=== PATIENT | female | born 1960 | race Caucasian/White ===

== ENCOUNTER 2023-03-04 10:24 | Inpatient (IN) ==
[2023-03-04 11:46] LABS: Basophils # (auto) 0.04 K/uL (0-0.2); Basophils % (auto) 0.5 %; Eosinophils # (auto) 0.49 K/uL (0-0.50); Eosinophils % (auto) 5.6 %; Hemoglobin 10.8 g/dl (12.0-16.0); Immature Granulocytes # (auto) 0.04 K/uL (0.01-0.20); Immature Granulocytes % (auto) 0.5 %; Lymphocytes # (auto) 1.88 K/uL (1.2-3.4); Lymphocytes % (auto) 21.5 %; Mean Corpuscular Hemoglobin 26.8 pg (25.0-34.0); Mean Corpuscular Hgb Conc 29.2 g/dL (32.0-36.0); Mean Corpuscular Volume 91.8 fL (80.0-100.0); Mean Platelet Volume 9.5 fL (9.4-12.4); Monocytes # (auto) 0.52 K/uL (0.11-0.59); Monocytes % (auto) 5.9 %; Neutrophils # (auto) 5.79 K/uL (1.40-6.50); Platelet Count 248 K/uL (130-400); RDW Coefficient of Variation 13.3 % (11.5-14.5); RDW Standard Deviation 45.2 fL (36.4-46.3); Red Blood Count 4.03 M/uL (4.20-5.40); White Blood Count 8.76 K/ul (4.8-10.8)
[2023-03-04 11:54] LABS: INR 1.1 (0.9-1.1); Partial Thromboplastin Ratio 0.9; Prothrombin Time 11.5 Seconds (9.0-12.0)
--- NOTE | 2023-03-04 12:07 | XRay Report ---
XR chest 1V not portable HISTORY: 62 years-old Female Chest pain, nonspecific COMPARISON: 04/19/2009 TECHNIQUE: AP view of the chest FINDINGS: Cardiac silhouette is enlarged. Small hiatal hernia. No pneumothorax, pleural effusion, airspace cons olidation or pulmonary edema. Bones appear grossly intact. Cholecystectomy. Sigmoidal thoracolumbar s coliosis. IMPRESSION: 1. Cardiomegaly without acute process. 2. Hiatal hernia. ACT 112: Negative or not required by law. The above report was generated using voice recognition software. It may contain grammatical, syntax o r spelling errors. Electronically signed by: Stan Clark M.D. 03/04/2023 12:05 PM
--- NOTE | 2023-03-04 12:33 | Emergency Department Note ---
Impression & Plan Shortness of breath, AMS (altered mental status), [facility] ED Provider Note NAME: DANIEL OWEN AGE: 62 SEX: F : 1960 ARRIVES VIA: Walk-In INFORMANT: Patient ED PROVIDER(S): Asad Goldsmith DO CHIEF COMPLAINT: elevated CO2 HPI: Patient is a 62-year-old female who presents to the ER referred by PCP for elevated CO2 levels. Patient does have a history of dementia. present at bedside and gave the majority of the history. Patient denies any headache or change in vision. No chest pain or shortness of breath. No nausea, vomiting, or diarrhea. She does admit that she normally does use her BiPAP. No other exacerbating or remitting factors. PAST MEDICAL HISTORY:See Below PAST SURGICAL HISTORY:See Below FAMILY HISTORY:See Below SOCIAL HISTORY:See Below HOME MEDICATIONS:See Below ALLERGIES:See Below VITALS:See Below PHYSICAL EXAMINATION: GENERAL: Sitting up in bed, alert, well appearing, well nourished, no distress, non-toxic EYE EXAM: normal conjunctiva. OROPHARYNX: no exudate, no erythema, lips, buccal mucosa, and tongue normal and mucous membranes are moist NECK: supple, no nuchal rigidity, no adenopathy, non-tender LUNGS: Clear to auscultation. Normal chest wall mechanics HEART: no murmurs, S1 normal and S2 normal ABDOMEN: abdomen soft, non-tender, normo-active bowel sounds, no masses, no rebound or guarding. BACK: Back is symmetrical on inspection and there is no deformity, no midline tenderness, no CVA tenderness. SKIN: Erythema over the pannus in the groin. Does have pitting edema UPPER EXTREMITIES: upper extremities are grossly normal. LOWER EXTREMITIES: Pitting edema in the bilateral lower extremities NEURO EXAM: Normal sensorium, cranial nerves II-XII grossly intact, normal speech, no gross weakness of arms, no gross weakness of legs. MEDICAL DECISION MAKING: Patient is a 62-year-old female who presents ER for above-stated complaint. Patient was referred in by PCP for increased confusion of the past several days. IV was established blood work was obtained. Labs show no significant leukocytosis. Mild anemia. INR unremarkable. VBG with CO2 of 99. Patient was fairly well compensated with a pH of 7.34. BMP was unremarkable. LFTs bilirubin was unremarkable. Troponin was negative. Patient does not wear BiPAP/is unable to keep it on. Do favor that his part of the cause. Did discuss with the hospitalist for further evaluation management treatment. Did place the patient on BiPAP to see if this helps clear up her confusion. Of note patient was in no respiratory distress. Patient was covered with Rocephin for the erythema in the groin which does appear to be consistent with a cellulitis. Triage Nursing notes reviewed. Limited review of prior medical records performed Vital Signs: reviewed and remarkable for no significant abnormalities Differential diagnosis: Differential diagnoses includes but is not limited to pneumonia, bronchitis, COPD/Asthma exacerbation, pneumothorax, pulmonary embolism, congestive heart failure, acute coronary syndrome ER treatment provided: See below Diagnostics interpreted by me include EKG and cardiac monitoring as listed below: -Cardiac Monitoring: An order was placed for continuous cardiac monitoring. The monitor shows a rate of 80 with sinus rhythm. -ECG: none -Laboratory studies:Interpreted by me as stated above in MDM and shown below. Imaging studies: Xrays: As interpreted by me: Portable AP upright 1 view of the chest shows no focal infiltrate CTs show: none Consultation(s): As described in MDM Procedures:none Critical Care: I have personally spent 31 minutes of critical care time in the direct management of this patient. This includes bedside care, interpretation of diagnostic studies, and testing, discussion with consultants, patient, and family members, and other required patient management activities. This 31 minutes is in excess of all separately billable procedures. Past Med/Surg History Social History Smoking Status: Never smoker Feels Safe at Home: Yes Allergies Allergies Allergy/AdvReac Type Severity Reaction Status Date / Time Penicillins Allergy Mild Verified 08/19/09 03:46 Home Meds Home Medications Medication Instructions Recorded Confirmed amitriptyline 10 mg tablet 10 mg PO HS 03/04/23 03/04/23 amitriptyline 25 mg tablet 25 mg PO HS 03/04/23 03/04/23 buprenorphine 8 mg-naloxone 2 mg 1 film sublingual BID 03/04/23 03/04/23 sublingual film cyanocobalamin (vitamin B-12) 1,000 mcg IM MONTHLY 03/04/23 03/04/23 1,000 mcg/mL injection solution donepezil 10 mg tablet 10 mg PO DAILY 03/04/23 03/04/23 doxycycline hyclate 100 mg capsule 100 mg PO BID 03/04/23 03/04/23 duloxetine 60 mg capsule,delayed 60 mg PO DAILY 03/04/23 03/04/23 release folic acid 1 mg tablet 1 mg PO DAILY 03/04/23 03/04/23 furosemide 20 mg tablet (Lasix) 20 mg PO BID 03/04/23 03/04/23 levothyroxine 150 mcg tablet 150 mcg PO DAILY 03/04/23 03/04/23 loratadine 10 mg tablet 10 mg PO DAILY PRN Allergy Symptoms 03/04/23 03/04/23 methocarbamol 500 mg tablet 500 mg PO BID 03/04/23 03/04/23 Results & Data (ED) Vital Signs Vital Signs - 24 hr 03/04/23 10:38 03/04/23 12:41 03/04/23 12:41 Temperature 36.8 C Temperature Source Oral Pulse Rate 80 Pulse Rate from SpO2 Sensor Respiratory Rate 24 Respiratory Effort / Characteristics Blood Pressure 132/72 Blood Pressure Mean 92 Blood Pressure Position Sitting Pulse Oximetry 97 97 97 Oxygen Delivery Method Nasal Cannula Nasal Cannula Nasal Cannula Oxygen Flow Rate 3 3 Fraction of Inspired Oxygen Sepsis Recent Fever Within 48 Hours No Sepsis New/Unexplained Change in Mental Status No Sepsis Action Taken by Nursing No Action Required 03/04/23 12:36 03/04/23 12:37 03/04/23 12:40 Temperature Temperature Source Pulse Rate 78 73 Pulse Rate from SpO2 Sensor 78 75 Respiratory Rate 17 13 Respiratory Effort / Characteristics Blood Pressure 140/80 Blood Pressure Mean 108 Blood Pressure Position Pulse Oximetry 99 96 Oxygen Delivery Method Oxygen Flow Rate Fraction of Inspired Oxygen Sepsis Recent Fever Within 48 Hours Sepsis New/Unexplained Change in Mental Status Sepsis Action Taken by Nursing 03/04/23 12:36 03/04/23 13:22 Temperature Temperature Source Pulse Rate 75 75 Pulse Rate from SpO2 Sensor Respiratory Rate 26 H Respiratory Effort / Characteristics Spontaneous Blood Pressure Blood Pressure Mean Blood Pressure Position Pulse Oximetry 98 Oxygen Delivery Method Oxygen Flow Rate Fraction of Inspired Oxygen 30 Sepsis Recent Fever Within 48 Hours Sepsis New/Unexplained Change in Mental Status Sepsis Action Taken by Nursing Laboratory Data 03/04/23 11:25 03/04/23 11:25 Lab Results 03/04/23 03/04/23 03/04/23 Range/Units 11:25 11:25 11:25 WBC 8.76 (4.8-10.8) K/ul RBC 4.03 L (4.20-5.40) M/uL Hgb 10.8 L (12.0-16.0) g/dl Hct 37.0 (37.0-47.0) % MCV 91.8 (80.0-100.0) fL MCH 26.8 (25.0-34.0) pg MCHC 29.2 L (32.0-36.0) g/dL RDW Std Deviation 45.2 (36.4-46.3) fL RDW Coeff of Jaron 13.3 (11.5-14.5) % Plt Count 248 (130-400) K/uL MPV 9.5 (9.4-12.4) fL Immature Gran % (Auto) 0.5 % Neut % (Auto) 66.0 % Lymph % (Auto) 21.5 % Roane % (Auto) 5.9 % Eos % (Auto) 5.6 % Baso % (Auto) 0.5 % Neut # (Auto) 5.79 (1.40-6.50) K/uL Lymph # (Auto) 1.88 (1.2-3.4) K/uL Roane # (Auto) 0.52 (0.11-0.59) K/uL Eos # (Auto) 0.49 (0-0.50) K/uL Baso # (Auto) 0.04 (0-0.2) K/uL Immature Gran # (Auto) 0.04 (0.01-0.20) K/uL PT 11.5 (9.0-12.0) Seconds INR 1.1 (0.9-1.1) APTT 26.0 (21.0-31.0) Seconds PTT Ratio 0.9 ABG pH (7.35-7.45) ABG pCO2 (35-46) mmHg ABG pO2 (80-95) mmHg ABG HCO3 (19-24) mmol/L ABG O2 Saturation (90-95) % ABG Base Excess (-9-1.8) mEq/L Harvinder Test (Pos) VBG pH (7.36-7.41) VBG pCO2 (38-50) mmHg VBG pO2 mmHg VBG HCO3 mmol/L VBG O2 Saturation % VBG Base Excess mEq/L Oxygen Given Sodium 141 (136-145) mmol/L Potassium 3.8 (3.5-5.1) mmol/L Chloride 91 L (98-107) mmol/L Carbon Dioxide > 45 H* (21-32) mmol/L Anion Gap TNP BUN 19 (6-23) mg/dl Creatinine 0.58 L (0.6-1.2) mg/dl Est Cr Clr Drug Dosing Not Reportable Est GFR ( Amer) 114.5 ml/min Est GFR (Non-Af Amer) 98.8 ml/min BUN/Creatinine Ratio 32.8 H (10-20) Glucose 125 H (70-99(Fasting)) mg/dl Calcium 9.1 (8.6-10.3) mg/dl Magnesium 2.1 (1.7-2.4) mg/dl Total Bilirubin 0.3 (0.2-1.0) mg/dl AST 20 (13-39) U/L ALT 13 (7-52) U/L Alkaline Phosphatase 100 (34-104) U/L Troponin I High Sens 7.8 (0-14) pg/ml Total Protein 7.5 (6.0-8.3) gm/dl Albumin 3.5 (3.4-5.0) gm/dl Globulin 4.0 (2.5-4.0) gm/dl Albumin/Globulin Ratio 0.9 (0.9-2) 03/04/23 03/04/23 Range/Units 12:31 13:54 WBC (4.8-10.8) K/ul RBC (4.20-5.40) M/uL Hgb (12.0-16.0) g/dl Hct (37.0-47.0) % MCV (80.0-100.0) fL MCH (25.0-34.0) pg MCHC (32.0-36.0) g/dL RDW Std Deviation (36.4-46.3) fL RDW Coeff of Jaron (11.5-14.5) % Plt Count (130-400) K/uL MPV (9.4-12.4) fL Immature Gran % (Auto) % Neut % (Auto) % Lymph % (Auto) % Roane % (Auto) % Eos % (Auto) % Baso % (Auto) % Neut # (Auto) (1.40-6.50) K/uL Lymph # (Auto) (1.2-3.4) K/uL Roane # (Auto) (0.11-0.59) K/uL Eos # (Auto) (0-0.50) K/uL Baso # (Auto) (0-0.2) K/uL Immature Gran # (Auto) (0.01-0.20) K/uL PT (9.0-12.0) Seconds INR (0.9-1.1) APTT (21.0-31.0) Seconds PTT Ratio ABG pH 7.41 (7.35-7.45) ABG pCO2 85 H (35-46) mmHg ABG pO2 88 (80-95) mmHg ABG HCO3 54 H (19-24) mmol/L ABG O2 Saturation 98.2 H (90-95) % ABG Base Excess 25.1 H (-9-1.8) mEq/L Harvinder Test Pos (Pos) VBG pH 7.34 L (7.36-7.41) VBG pCO2 99 H (38-50) mmHg VBG pO2 36 mmHg VBG HCO3 53 mmol/L VBG O2 Saturation < 60.0 % VBG Base Excess 23.1 mEq/L Oxygen Given 30% Sodium (136-145) mmol/L Potassium (3.5-5.1) mmol/L Chloride (98-107) mmol/L Carbon Dioxide (21-32) mmol/L Anion Gap BUN (6-23) mg/dl Creatinine (0.6-1.2) mg/dl Est Cr Clr Drug Dosing Est GFR ( Amer) ml/min Est GFR (Non-Af Amer) ml/min BUN/Creatinine Ratio (10-20) Glucose (70-99(Fasting)) mg/dl Calcium (8.6-10.3) mg/dl Magnesium (1.7-2.4) mg/dl Total Bilirubin (0.2-1.0) mg/dl AST (13-39) U/L ALT (7-52) U/L Alkaline Phosphatase (34-104) U/L Troponin I High Sens (0-14) pg/ml Total Protein (6.0-8.3) gm/dl Albumin (3.4-5.0) gm/dl Globulin (2.5-4.0) gm/dl Albumin/Globulin Ratio (0.9-2) Administered Medications Discontinued Medications Ceftriaxone Sodium (Rocephin) 2,000 mg in 70 mls @ 140 mls/hr IV NOW STA Stop: 03/04/23 13:22 Last Admin: 03/04/23 13:47 Dose: 140 mls/hr Documented By: YONY Imaging Data Radiologist's Impression: Chest X-Ray 03/04/23 10:40 XR chest 1V not portable HISTORY: 62 years-old Female Chest pain, nonspecific COMPARISON: 04/19/2009 TECHNIQUE: AP view of the chest FINDINGS: Cardiac silhouette is enlarged. Small hiatal hernia. No pneumothorax, pleural effusion, airspace consolidation or pulmonary edema. Bones appear grossly intact. Cholecystectomy. Sigmoidal thoracolumbar scoliosis. IMPRESSION: 1. Cardiomegaly without acute process. 2. Hiatal hernia. ACT 112: Negative or not required by law. The above report was generated using voice recognition software. It may contain grammatical, syntax or spelling errors. Electronically signed by: Stan Clark M.D. 03/04/2023 12:05 PM Discharge Plan Visit Data Chief Complaint: Abnormal Labs/Diagnostic Testing Stated Complaint: REF BY DOC, ABNORMAL LABS ED Provider: Asad Goldsmith Discharge Problem: Shortness of breath, AMS (altered mental status), [facility] Forms Stand Alone Forms: [facility] Prescriptions Prescriptions: No Action amitriptyline 25 mg tablet 25 mg PO HS Rx Instructions: take along with 10mg amitriptyline 10 mg tablet 10 mg PO HS Rx Instructions: to take additionally with 25mg HS cyanocobalamin (vitamin B-12) 1,000 mcg/mL solution 1,000 mcg IM MONTHLY buprenorphine-naloxone 8-2 mg film 1 film sublingual BID methocarbamol 500 mg tablet 500 mg PO BID Rx Instructions: patient taking differently: 1,000mg daily doxycycline hyclate 100 mg Capsule 100 mg PO BID Rx Instructions: scheduled through 03/06 donepezil 10 mg Tablet 10 mg PO DAILY levothyroxine 150 mcg tablet 150 mcg PO DAILY folic acid 1 mg Tablet 1 mg PO DAILY furosemide [Lasix] 20 mg Tablet 20 mg PO BID loratadine 10 mg Tablet 10 mg PO DAILY PRN (Reason: Allergy Symptoms) duloxetine 60 mg capsule,delayed release(DR/EC) 60 mg PO DAILY Referrals Referrals: PCP,NO [Physician] -
[2023-03-04 12:34] LABS: Alanine Aminotransferase 13 U/L (7-52); Albumin Globulin Ratio 0.9 (0.9-2); Albumin Level 3.5 gm/dl (3.4-5.0); Alkaline Phosphatase 100 U/L (34-104); Aspartate Aminotransferase 20 U/L (13-39); BUN Creatinine Ratio 32.8 (10-20); Bilirubin,Total 0.3 mg/dl (0.2-1.0); Blood Urea Nitrogen 19 mg/dl (6-23); Calcium 9.1 mg/dl (8.6-10.3); Carbon Dioxide > 45 mmol/L (21-32); Chloride 91 mmol/L (98-107); Est GFR (African American) 114.5 ml/min; Est GFR (Non-African American) 98.8 ml/min; Glucose 125 mg/dl (70-99(Fasting)); Potassium 3.8 mmol/L (3.5-5.1); Sodium 141 mmol/L (136-145); Total Protein 7.5 gm/dl (6.0-8.3); Troponin I High Sensitivity 7.8 pg/ml (0-14)
[2023-03-04 12:45] LABS: Base Excess VBG 23.1 mEq/L; HCO3 VBG 53 mmol/L; Oxygen Saturation VBG < 60.0 %; PCO2 VBG 99 mmHg (38-50); PO2 VBG 36 mmHg; pH VBG 7.34 (7.36-7.41)
[2023-03-04] MEDS ORDERED: cefTRIAXone SODIUM 2,000 MG/70 ML BAG IV STA (12:53)
[2023-03-04 13:04] LABS: Magnesium 2.1 mg/dl (1.7-2.4)
--- NOTE | 2023-03-04 13:06 | History & Physical Report ---
Date of Service March 04, 2023 Assessment & Plan (1) Respiratory failure with hypoxia and hypercapnia: (2) Hypoventilation associated with obesity syndrome: (3) BEV on CPAP: (4) Morbid obesity: (5) Abdominal wall cellulitis: (6) Psoriatic arthritis: (7) Hypothyroidism: (8) Postgastric surgery syndrome: (9) Moderate dementia with behavioral disturbance: Plan This is a 62yo F with a PMH of hypersomnia with sleep apnea newly on CPAP, chronic hypoxic respiratory failure on 3L NC O2, moderate dementia with mood disturbance, morbid obesity with hypoventilation, history of medication noncompliance, hypothyroidism, dyslipidemia, post gastric surgery syndrome, psoriatic arthritis, h/o juvenile arthritis with chronic pain syndrome, myoclonic jerking and other medical problems listed below who presents due to abnormal labs in outpatient setting. 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 Sent in from outpatient ABG 7.34, pCO2 91.8 Recently started on 3L NC O2, CPAP at night for severe BEV, with recommendation for weight loss under medical supervision, due to see sleep med again 03/13 Acidosis resolved with bipap and seems to be tolerating mask, continue bipap trial for now History of myoclonic jerking Ongoing issues at home keeping CPAP mask on due to significant myoclonic jerking observed during exam despite trial of multiple masks Neuro consult for recommendations to better manage myoclonic jerking - currently on methocarbamol, amitriptyline Abdominal wall cellulitis Has completed 7/10 day course of doxycycline as outpatient, still with presence of cellulitis, healing boil. MRSA swab pending, no leukocytosis. Continue Rocephin for now, nystatin BLE edema Recent 2D echo with preserved EF, on lasix 20mg BID in outpatient setting CXR without evidence of overt failure, BNP WNL so continue home dose, monitor volume statin Moderate dementia with behavioral disturbance Established with [place] neurology, Dr. Sands Currently lives with who provides care PT/OT evaluation H/o scoliosis with chronic pain syndrome History of spinal injections in the past, recently switched to regimen with methocarbamol, buprenorphine-naloxone Hypothyroidism Continue levothyroxine Postgastric surgery syndrome Continue B12, Folate and Vit D supplementation DVT Ppx: SQ lovenox Code status: FULL PCP: Carmelo Dispo: Admitting to PCU Patient seen in collaboration with Dr. Short. Please see addendum. History of Present Illness Chief Complaint: abnormal labs, somnolence Primary Care Provider: Jessica Rhodes MD This is a 62yo F with a PMH of hypersomnia with sleep apnea newly on CPAP, chronic hypoxic respiratory failure on 3L NC O2, moderate dementia with mood disturbance, morbid obesity with hypoventilation, history of medication noncompliance, hypothyroidism, dyslipidemia, post gastric surgery syndrome, psoriatic arthritis, h/o juvenile arthritis with chronic pain syndrome, myoclonic jerking and other medical problems listed below who presents due to abnormal labs in outpatient setting. History per extensive chart review and discussion with patient's and daugher at bedside. Recently moved back to the area from [place] and family notes a steady cognitive decline over the past six months but a more significant one in the past week with multiple new health issues. Daughter states there have been a lot of new medications and changes in care providers since move and they are just starting to find some equilibrium. Was started on 3L O2 daily and also recently diagnosed with BEV and started on CPAP. Due to significant myoclonic jerks, patient knocks off her mask at night and then wakes up somnolent. Has been in contact with sleep medicine to try various masks and nothing seems to stay on during the night. Receives care from her but he is unable to handle the level of care she is currently requiring, especially with sleep disturbance issues. Patient has been seen in PCP's office multiple times recently, first for a cyst on pannus that was painful. That cyst has been draining per patient and is less painful but area around it on pannus remains red and painful and itchy. Was started on a 10 d course of doxycycline for abdominal wall cellulitis due to complete on 03/06. Was also noted to have a 20 lb weight gain since November of this year. Started on lasix and underwent echo on 02/26/23 which revealed preserved EF 55-60%, no regional wall motion abnormality. Is currently taking lasix 20mg BID for BLE edema that seems worse than previous. Underwent extensive labwork as an outpatient and ABG from 03/04 from earlier today revealed pH of 7.23 and pCO2 of 92 and was sent to ED for further evaluation of [facility] and respiratory acidosis. In ED, patient is tolerating bipap mask without issue. Family at bedside state she is becoming more alert and responsive since placed on mask. No pain, pleasantly confused but able to answer simple questions. Still with discomfort on abdominal wall. No F/C, lightheadedness, SOB, wheezing, CP, N/V, abdominal pain, dysuria, diarrhea or constipation. Allergies Allergy/AdvReac Type Severity Reaction Status Date / Time Penicillins Allergy Mild Verified 08/19/09 03:46 Home Medications Medication Instructions Recorded Confirmed Type amitriptyline 10 mg tablet 10 mg PO HS 03/04/23 03/04/23 History amitriptyline 25 mg tablet 25 mg PO HS 03/04/23 03/04/23 History buprenorphine 8 mg-naloxone 2 mg 1 film sublingual BID 03/04/23 03/04/23 History sublingual film cyanocobalamin (vitamin B-12) 1,000 mcg IM MONTHLY 03/04/23 03/04/23 History 1,000 mcg/mL injection solution donepezil 10 mg tablet 10 mg PO DAILY 03/04/23 03/04/23 History doxycycline hyclate 100 mg capsule 100 mg PO BID 03/04/23 03/04/23 History duloxetine 60 mg capsule,delayed 60 mg PO DAILY 03/04/23 03/04/23 History release folic acid 1 mg tablet 1 mg PO DAILY 03/04/23 03/04/23 History furosemide 20 mg tablet (Lasix) 20 mg PO BID 03/04/23 03/04/23 History levothyroxine 150 mcg tablet 150 mcg PO DAILY 03/04/23 03/04/23 History loratadine 10 mg tablet 10 mg PO DAILY PRN Allergy Symptoms 03/04/23 03/04/23 History methocarbamol 500 mg tablet 500 mg PO BID 03/04/23 03/04/23 History Past Med/Surg History Medical History Chronic respiratory failure Hypothyroidism Hypoventilation associated with obesity syndrome Moderate dementia with behavioral disturbance Morbid obesity BEV on CPAP Postgastric surgery syndrome Psoriatic arthritis Surgical History H/O breast biopsy Hx of cholecystectomy Family History Other Alzheimer disease Breast cancer Hypertension Social History Smoking Status: Never smoker Second Hand Exposure: No; Do You Dip or Chew Tobacco: No; Tobacco Cessation Education Requested by Patient: No Hx Alcohol Use: No Hx Substance Use: No Preferred Language: Tamazight Communication Ability: Effective Fitness Assistant Required: No Beliefs That Will Affect Care: None Current Living Situation: Spouse Feels Safe at Home: Yes Safety Concerns: Feels Safe At This Time Assistive Devices: None Review of Systems Review of Systems: At least ten systems reviewed and negative except as noted in the HPI. Physical Exam Physical Exam: General Appearance: WD/WN, vitals as above, NAD, sitting up in bed, lethargic but able to answer yes/no questions, wearing bipap mask Head: normocephalic, atraumatic Eyes: normal inspection, PERRL, conjunctivae normal, anicteric sclerae ENT: hard of hearing, external ear and nose normal, oropharynx normal Neck: normal visual inspection, trachea midline, no thyromegaly Respiratory: normal respiratory effort,diminished lung sounds bilaterally, no wheeze, rales, rhonchi. No accessory muscle use Cardiovascular: regular rate, rhythm, no murmur, normal peripheral pulses, 1+ BLE edema. Vessels: unable to visualize JVD 2/2 habitus Chest: normal inspection of chest Abdomen/GI: normal bowel sounds, protuberant but soft, nontender, no hepatosplenomegaly Extremities/Musculoskeletal: no cyanosis or clubbing, extremities motor strength 5/5 Neurologic: PERRL, EOMI, accommodation nl, no face palsy, no dysarthria, CN's II-XI intact bilaterally and moves all extremities Psychiatric: A+Ox2, lethargic as above Skin: + pannus above groin area erythematous, warm with healing lesion, no drainage observed. Normal color, warm/dry Results & Data Results & Data Vital Signs (Past 12 Hours) Vital Signs Temp Pulse Resp BP Pulse Ox O2 Del Method O2 Flow Rate 03/04/23 12:36 75 03/04/23 12:40 73 13 96 03/04/23 12:37 78 17 99 03/04/23 12:36 140/80 03/04/23 12:41 97 Nasal Cannula 3 03/04/23 12:41 97 Nasal Cannula 3 03/04/23 10:38 36.8 C 80 24 132/72 97 Nasal Cannula Laboratory Results Short CBC 03/04/23 Range/Units 11:25 WBC 8.76 (4.8-10.8) K/ul Hgb 10.8 L (12.0-16.0) g/dl Hct 37.0 (37.0-47.0) % Plt Count 248 (130-400) K/uL BMP 03/04/23 11:25 Sodium 141 Potassium 3.8 Chloride 91 L Carbon Dioxide > 45 H* BUN 19 Creatinine 0.58 L Glucose 125 H Calcium 9.1 Liver Function 03/04/23 Range/Units 11:25 Total Bilirubin 0.3 (0.2-1.0) mg/dl AST 20 (13-39) U/L ALT 13 (7-52) U/L Alkaline Phosphatase 100 (34-104) U/L Albumin 3.5 (3.4-5.0) gm/dl Diagnostic Findings Chest X-Ray 03/04/23 10:40 XR chest 1V not portable HISTORY: 62 years-old Female Chest pain, nonspecific COMPARISON: 04/19/2009 TECHNIQUE: AP view of the chest FINDINGS: Cardiac silhouette is enlarged. Small hiatal hernia. No pneumothorax, pleural effusion, airspace consolidation or pulmonary edema. Bones appear grossly intact. Cholecystectomy. Sigmoidal thoracolumbar scoliosis. IMPRESSION: 1. Cardiomegaly without acute process. 2. Hiatal hernia. ACT 112: Negative or not required by law. The above report was generated using voice recognition software. It may contain grammatical, syntax or spelling errors. Electronically signed by: Stan Clark M.D. 03/04/2023 12:05 PM Code Status & VTE Plan VTE Prophylaxis Plan VTE Prophylaxis will be ordered: Yes Supervising Physician Co-Signing Physician Notes I have seen and discussed the case with the collaborating BLANCA. I agree with the above H&P. I have reviewed and confirmed the patients medical history, the findings on physical examination, and the patients diagnosis and treatment plan with [facility] and agree with the information documented. In short, this is an 82 year old woman with multiple comorbidities noted for chronic hypoxic, hypercapnic respiratory failure on CPAP and home O2 3L NC who presented to ED due to abnormal labs and somnolence. Patient expresses difficulty with keeping CPAP on due to 6 months of progressive full-body jerks which knock the mask off--subsequently resulting in poor saturations. Patient is established with neuro for dementia, but has not been evaluated for myoclonus like jerks. Plan for bipap to manage respiratory acidosis, neuro to discuss any pharmacologic interventions for myoclonus like activity, and PT/OT.
[2023-03-04 14:03] LABS: Allen Test Pos (Pos); Base Excess ABG 25.1 mEq/L (-9-1.8); HCO3 ABG 54 mmol/L (19-24); Oxygen Saturation ABG 98.2 % (90-95); PCO2 ABG 85 mmHg (35-46); PO2 ABG 88 mmHg (80-95); pH ABG 7.41 (7.35-7.45)
[2023-03-04] MEDS ORDERED: LORATADINE 10 MG TAB PO PRN (16:35)
[2023-03-04] MEDS ORDERED: ACETAMINOPHEN 325 MG TAB PO PRN (16:35)
[2023-03-04] MEDS ORDERED: POLYETHYLENE (MIRALAX) 17 GM PACK PO PRN (16:35)
[2023-03-04 19:28] LABS: Base Excess VBG 24.8 mEq/L; HCO3 VBG 55 mmol/L; Oxygen Saturation VBG < 60.0 %; PCO2 VBG 87 mmHg (38-50); PO2 VBG 20 mmHg; pH VBG 7.41 (7.36-7.41)
[2023-03-04] MEDS: AMITRIPTYLINE HCL 10 MG TAB PO SCH (20:07)
[2023-03-04] MEDS: FUROSEMIDE 20 MG TAB PO SCH (20:07)
[2023-03-04] MEDS: AMITRIPTYLINE HCL 25 MG TAB PO SCH (20:07)
[2023-03-04] MEDS: METHOCARBAMOL 500 MG TABLET PO SCH (20:08)
[2023-03-04] MEDS: BUPRENORPHINE/NALOXONE 8/2 MG TAB SL SCH (20:08)
[2023-03-04] MEDS: ENOXAPARIN INJ 40 MG/0.4 ML SYR SQ SCH (20:08)
[2023-03-05] MEDS: LEVOTHYROXINE SODIUM 150 MCG TABLET PO SCH (05:35)
[2023-03-05 06:44] LABS: Allen Test Pos (Pos); Base Excess ABG 25.8 mEq/L (-9-1.8); HCO3 ABG 56 mmol/L (19-24); PCO2 ABG 84 mmHg (35-46); PO2 ABG 110 mmHg (80-95); pH ABG 7.43 (7.35-7.45)
[2023-03-05 06:46] LABS: Hemoglobin 10.2 g/dl (12.0-16.0); Mean Corpuscular Hemoglobin 26.8 pg (25.0-34.0); Mean Corpuscular Volume 89.5 fL (80.0-100.0); Mean Platelet Volume 9.8 fL (9.4-12.4); Platelet Count 248 K/uL (130-400); RDW Coefficient of Variation 13.4 % (11.5-14.5); RDW Standard Deviation 44.1 fL (36.4-46.3); White Blood Count 7.87 K/ul (4.8-10.8)
[2023-03-05 07:16] LABS: BUN Creatinine Ratio 30.2 (10-20); Blood Urea Nitrogen 16 mg/dl (6-23); Calcium 8.6 mg/dl (8.6-10.3); Carbon Dioxide > 45 mmol/L (21-32); Chloride 91 mmol/L (98-107); Creatinine Clr Calc Pharmacy 121.9 ml/min; Est GFR (African American) 117.9 ml/min; Est GFR (Non-African American) 101.8 ml/min; Glucose 101 mg/dl (70-99(Fasting)); Potassium 3.8 mmol/L (3.5-5.1); Sodium 142 mmol/L (136-145)
[2023-03-05] MEDS: BUPRENORPHINE/NALOXONE 8/2 MG TAB SL SCH ×2 (08:32→20:16)
[2023-03-05] MEDS: DONEPEZIL HCL 10 MG TAB PO SCH (08:33)
[2023-03-05] MEDS: FOLIC ACID 1 MG TAB PO SCH (08:34)
[2023-03-05] MEDS: FUROSEMIDE 20 MG TAB PO SCH (08:36)
[2023-03-05] MEDS: METHOCARBAMOL 500 MG TABLET PO SCH ×2 (08:36→20:19)
--- NOTE | 2023-03-05 08:56 | Nephrology Consultation ---
Date of Consultation March 05, 2023 History of Present Illness Reason for Consultation: Compensated metabolic alkalosis Requesting Physician: Dr. Gallegos Attending Physician: Terrell Gallegos MD History of Present Illness 62-year-old female whom I am asked to evaluate for metabolic alkalosis was admitted yesterday afternoon with acute on chronic respiratory failure in the setting of obesity hypoventilation and severe sleep apnea. Past medical history includes hypersomnia with sleep apnea recently started on CPAP, chronic hypoxic respiratory failure on 3 L oxygen, moderate dementia, morbid obesity BMI 46, history of medication noncompliance, hypothyroid, status post gastric surgery, psoriatic arthritis, chronic pain syndrome, myoclonic jerking. Also on 10-day course of doxycycline Allergies Allergy/AdvReac Type Severity Reaction Status Date / Time Penicillins Allergy Mild Verified 08/19/09 03:46 Home Medications Medication Instructions Recorded Confirmed Type amitriptyline 10 mg tablet 10 mg PO HS 03/04/23 03/04/23 History amitriptyline 25 mg tablet 25 mg PO HS 03/04/23 03/04/23 History buprenorphine 8 mg-naloxone 2 mg 1 film sublingual BID 03/04/23 03/04/23 History sublingual film cyanocobalamin (vitamin B-12) 1,000 mcg IM MONTHLY 03/04/23 03/04/23 History 1,000 mcg/mL injection solution donepezil 10 mg tablet 10 mg PO DAILY 03/04/23 03/04/23 History doxycycline hyclate 100 mg capsule 100 mg PO BID 03/04/23 03/04/23 History duloxetine 60 mg capsule,delayed 60 mg PO DAILY 03/04/23 03/04/23 History release folic acid 1 mg tablet 1 mg PO DAILY 03/04/23 03/04/23 History furosemide 20 mg tablet (Lasix) 20 mg PO BID 03/04/23 03/04/23 History levothyroxine 150 mcg tablet 150 mcg PO DAILY 03/04/23 03/04/23 History loratadine 10 mg tablet 10 mg PO DAILY PRN Allergy Symptoms 03/04/23 03/04/23 History methocarbamol 500 mg tablet 500 mg PO BID 03/04/23 03/04/23 History Patient History Medical History Chronic respiratory failure Hypothyroidism Hypoventilation associated with obesity syndrome Moderate dementia with behavioral disturbance Morbid obesity BEV on CPAP Postgastric surgery syndrome Psoriatic arthritis Surgical History H/O breast biopsy Hx of cholecystectomy Family History Other Alzheimer disease Breast cancer Hypertension Social History Smoking Status: Never smoker Second Hand Exposure: No; Do You Dip or Chew Tobacco: No; Tobacco Cessation Education Requested by Patient: No Hx Alcohol Use: No Hx Substance Use: No Preferred Language: Indonesian Communication Ability: Effective Clearing Supervisor Required: No Beliefs That Will Affect Care: None Current Living Situation: Spouse Feels Safe at Home: Yes Safety Concerns: Feels Safe At This Time Assistive Devices: None Results & Data Vital Signs (Past 12 Hours) Vital Signs Temp Pulse Pulse Resp BP Pulse Ox O2 Del Method 03/05/23 07:21 36.6 C 68 18 118/59 L 94 Room Air 03/05/23 07:48 BiPAP 03/05/23 07:36 89 03/05/23 04:27 37.1 C 69 22 108/61 96 CPAP 03/05/23 02:39 63 18 96 03/05/23 00:21 36.9 C 63 23 118/67 96 CPAP 03/04/23 21:53 69 16 95 03/04/23 21:52 BiPAP O2 Flow Rate 03/05/23 07:21 03/05/23 07:48 03/05/23 07:36 03/05/23 04:27 4 03/05/23 02:39 4 03/05/23 00:21 4 03/04/23 21:53 4 03/04/23 21:52
--- NOTE | 2023-03-05 08:59 | Pulmonary Consultation ---
Date of Consultation March 05, 2023 Assessment & Plan (1) Respiratory failure with hypoxia and hypercapnia: (2) BEV on CPAP: (3) Chronic respiratory failure: (4) Thoracic scoliosis: (5) Metabolic alkalosis: (6) Morbid obesity: Plan Chest x-ray 03/04/2023 personally reviewed: Portable film, good inspiratory effort, significant thoracic scoliosis appreciated, bilateral costophrenic and cardiophrenic tigecycline. No clear lung infiltrate appreciated 2D echo 02/26/2023: EF 55-60%, RV not well visualized, normal systolic function ABG 03/05/2023: 7.43/84/110 on 4 L nasal cannula -- Acute on chronic hypoxic hypercapnic respiratory failure Hypercapnia is most likely from BEV/OHS Hypoxia is likely from VQ mismatch from morbid obesity and lower lobe atelectasis Keep O2 saturation between 88-92%, do not over oxygenate the patient Continue with BiPAP nightly and as needed shortness of breath --Metabolic alkalosis Likely compensation to chronic hypercapnic respiratory failure as well as Lasix --BEV/OHS Patient recently had sleep study done Continue with BiPAP nightly and as needed shortness of breath --Questionable history of asthma Patient does not have any significant atopy, no childhood or family history of asthma Possibility of her having Edac is high given the BMI PFT as an outpatient will be beneficial --History of lupus and daughter No personal history of any autoimmune disease Plan: Patient's ABG has been greater than 7.4. Hold Lasix and would rather give acetazolamide 250 mg twice daily first total of 6 doses Keep O2 saturation between 88-92%, do not over oxygenate the patient. Incentive spirometry will be beneficial. Patient did have a dedicated sleep study done. I would like to know if it was a titration study or only diagnostic study. Dr. Gallegos I will try to get [facility] records. Case was discussed with Dr. Gallegos as well as RN at bedside Please note the above document was generated using voice recognition software. It may contain grammatical, syntax or spelling errors.Any formal questions or concerns about the content, text or information contained within the body of this dictation should be directly addressed to the provider for clarification. History of Present Illness Attending Physician: Terrell Gallegos MD History of Present Illness 62-year-old female presented to the hospital because of altered mental status Past medical history: BEV on CPAP, chronic hypoxic respiratory failure, moderate dementia, morbid obesity, hypothyroidism, psoriatic arthritis, myoclonic jerking Pulmonary consulted for hypercapnic hypoxic respiratory failure Was diagnosed with asthma in her 40s. There is no childhood or family history of asthma Not on any inhalers at home At the time of examination patient was saturating 99% on 5 L. I was able to go down to 1 L and she was saturating around 90 to 93% Overall she says she is feeling better. Shortness of breath is improved. No wheezing Denies any chest pain, no chest tightness No headache, no blurry vision No fever or chills Denies any cough, no chest congestion No personal history of any autoimmune disease Daughter does have lupus History of nasal polyps. 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 No alcohol. No illicit drug use Pets: Used to have dog. No birds or poultry nearby Allergies Allergy/AdvReac Type Severity Reaction Status Date / Time Penicillins Allergy Mild Verified 08/19/09 03:46 Home Medications Medication Instructions Recorded Confirmed Type amitriptyline 10 mg tablet 10 mg PO HS 03/04/23 03/04/23 History amitriptyline 25 mg tablet 25 mg PO HS 03/04/23 03/04/23 History buprenorphine 8 mg-naloxone 2 mg 1 film sublingual BID 03/04/23 03/04/23 History sublingual film cyanocobalamin (vitamin B-12) 1,000 mcg IM MONTHLY 03/04/23 03/04/23 History 1,000 mcg/mL injection solution donepezil 10 mg tablet 10 mg PO DAILY 03/04/23 03/04/23 History doxycycline hyclate 100 mg capsule 100 mg PO BID 03/04/23 03/04/23 History duloxetine 60 mg capsule,delayed 60 mg PO DAILY 03/04/23 03/04/23 History release folic acid 1 mg tablet 1 mg PO DAILY 03/04/23 03/04/23 History furosemide 20 mg tablet (Lasix) 20 mg PO BID 03/04/23 03/04/23 History levothyroxine 150 mcg tablet 150 mcg PO DAILY 03/04/23 03/04/23 History loratadine 10 mg tablet 10 mg PO DAILY PRN Allergy Symptoms 03/04/23 03/04/23 History methocarbamol 500 mg tablet 500 mg PO BID 03/04/23 03/04/23 History Patient History Medical History (Updated 03/05/23 @ 15:14 by Emily Knapp MD, [facility]) Chronic respiratory failure Hypothyroidism Hypoventilation associated with obesity syndrome Moderate dementia with behavioral disturbance Morbid obesity BEV on CPAP Postgastric surgery syndrome Psoriatic arthritis Surgical History H/O breast biopsy Hx of cholecystectomy Family History Other Alzheimer disease Breast cancer Hypertension Social History Smoking Status: Never smoker Second Hand Exposure: No; Do You Dip or Chew Tobacco: No; Tobacco Cessation Education Requested by Patient: No Hx Alcohol Use: No Hx Substance Use: No Preferred Language: Ukrainian Communication Ability: Effective Senior Escrow Officer Required: No Beliefs That Will Affect Care: None Current Living Situation: Spouse Feels Safe at Home: Yes Safety Concerns: Feels Safe At This Time Assistive Devices: Walker and Other Review of Systems Review of Systems: All systems reviewed & are unremarkable except as noted in HPI & below Physical Exam Physical Exam: Constitutional: No acute distress HEENT: EOMI, PERRLA Respiratory system: Good air entry bilaterally, no rhonchi, no crackles, patient did have upper airway wheeze on examination which was intermittent CVS: S1-S2 positive, no murmurs or gallops Abdomen: Soft, nontender, nondistended, positive bowel sounds x4 obese Extremities: +2 pulses bilaterally radialis/ dorsalis pedis, no cyanosis, +2 pitting edema bilateral lower extremity Neuro: Awake alert oriented x3 Psych: Normal mood and affect G/U: No Kim Musculoskeletal: Thoracic scoliosis Skin: no rashes, warm and dry Lymphatic: no cervical or axillary lymphadenopathy Results & Data Results & Data Vital Signs (Past 12 Hours) Vital Signs Temp Pulse Pulse Resp BP Pulse Ox O2 Del Method 03/05/23 07:21 36.6 C 68 18 118/59 L 94 Room Air 03/05/23 07:48 BiPAP 03/05/23 07:36 89 03/05/23 04:27 37.1 C 69 22 108/61 96 CPAP 03/05/23 02:39 63 18 96 03/05/23 00:21 36.9 C 63 23 118/67 96 CPAP 03/04/23 21:53 69 16 95 03/04/23 21:52 BiPAP O2 Flow Rate 03/05/23 07:21 03/05/23 07:48 03/05/23 07:36 03/05/23 04:27 4 03/05/23 02:39 4 03/05/23 00:21 4 03/04/23 21:53 4 03/04/23 21:52 Laboratory Results 03/05/23 06:15 03/05/23 06:15 PG Care Time/CCT Total # of Minutes Spent Total Time Spent with Patient: Total time spent is greater than 50% in coordination of care (as documented) at patient's floor/unit and/or counseling patient: [place] [address] INT INP/OBS CARE 3/75MIN Patient Type New Diagnoses Respiratory failure with hypoxia and hypercapnia J96.91; J96.92 BEV on CPAP G47.33 Chronic respiratory failure J96.10 Thoracic scoliosis M41.9 Metabolic alkalosis E87.3 Morbid obesity E66.01
--- NOTE | 2023-03-05 09:09 | Nephrology Consultation ---
Date of Consultation March 05, 2023 Assessment & Plan (1) Acid-base disorder, mixed: with chronic respiratory acidosis obesity hypoventilation and severe sleep apnea. However profound hypercarbia is more than we would expect with compensation for chronic respiratory acidosis. Patient also with profound m etabolic alkalosis. Question whether with her diminished mental status and chronic loop diuretic therapy she may be diminished in terms of intravascular effective volume. Note minimal movement in PCO2 despite BiPAP therapy at least for past 24 hours -test urine chemistries >> ordered spot urine lytes, urine creatinine, urine uric acid (this last one is reference lab) -AFTER urine test consider trial of low-dose normal saline versus acetazolamide -daily ABG pls for now History of Present Illness Reason for Consultation: Metabolic alkalosis Requesting Physician: Dr. Gallegos Attending Physician: Terrell Gallegos MD History of Present Illness 62-year-old female whom I am asked to see for metabolic alkalosis was admitted yesterday after outpatient labs showed an ABG w/ p H 7.34 and pC02 92. PMH includes severe obstructive sleep apnea newly on CPAP, chronic hypoxic respiratory failure recently started on 3L 02NC, morbid obesity BMI 46, dementia/cognitive impairment, presbycussis, hx of medication nonadherence, hypothryoid, s/p gastric sleeve surgery, psoriatic arthritis w/ chronic pain, hx of myoclonic jerking. She has been having issues at home keeping CPAP mask on d/t myoclonic jerking managed as OP w/ methocarbamol and amytriptylene. Admission ABG : 7.41/ 85/ 88/ 54; f/u ABG this AM 7.43/ 84/ 110/ 56 after night on Bipap (presume - unable to verify in [employer]). She takes furosemide 20 mg bid as OP and is on that here. Also does not drink much more than a L daily given hx of gastric sleeve surgery though she tells me she is "always a bit thirsty." Overall today feels tired and anxious; worries she won't be able to get her breath though feels better today as I saw her late this AM on 6L 02NC w/ her at bedside. no edema, no n/v/d/abd pain. no f/c, no voiding concerns. Allergies Allergy/AdvReac Type Severity Reaction Status Date / Time Penicillins Allergy Mild Verified 08/19/09 03:46 Home Medications Medication Instructions Recorded Confirmed Type amitriptyline 10 mg tablet 10 mg PO HS 03/04/23 03/04/23 History amitriptyline 25 mg tablet 25 mg PO HS 03/04/23 03/04/23 History buprenorphine 8 mg-naloxone 2 mg 1 film sublingual BID 03/04/23 03/04/23 History sublingual film cyanocobalamin (vitamin B-12) 1,000 mcg IM MONTHLY 03/04/23 03/04/23 History 1,000 mcg/mL injection solution donepezil 10 mg tablet 10 mg PO DAILY 03/04/23 03/04/23 History doxycycline hyclate 100 mg capsule 100 mg PO BID 03/04/23 03/04/23 History duloxetine 60 mg capsule,delayed 60 mg PO DAILY 03/04/23 03/04/23 History release folic acid 1 mg tablet 1 mg PO DAILY 03/04/23 03/04/23 History furosemide 20 mg tablet (Lasix) 20 mg PO BID 03/04/23 03/04/23 History levothyroxine 150 mcg tablet 150 mcg PO DAILY 03/04/23 03/04/23 History loratadine 10 mg tablet 10 mg PO DAILY PRN Allergy Symptoms 03/04/23 03/04/23 History methocarbamol 500 mg tablet 500 mg PO BID 03/04/23 03/04/23 History Patient History Medical History (Updated 03/05/23 @ 15:14 by Emily Knapp MD, [facility]) Chronic respiratory failure Hypothyroidism Hypoventilation associated with obesity syndrome Moderate dementia with behavioral disturbance Morbid obesity BEV on CPAP Postgastric surgery syndrome Psoriatic arthritis Surgical History (Updated 03/05/23 @ 15:38 by April Berry MD, PhD) H/O breast biopsy H/O gastric sleeve Hx of cholecystectomy Family History Other Alzheimer disease Breast cancer Hypertension Social History Smoking Status: Never smoker Second Hand Exposure: No; Do You Dip or Chew Tobacco: No; Tobacco Cessation Education Requested by Patient: No Hx Alcohol Use: No Hx Substance Use: No Preferred Language: Micronesian Communication Ability: Effective Sack Maker Required: No Beliefs That Will Affect Care: None Current Living Situation: Spouse Feels Safe at Home: Yes Safety Concerns: Feels Safe At This Time Assistive Devices: Walker and Other Results & Data Vital Signs (Past 12 Hours) Vital Signs Temp Pulse Pulse Resp BP Pulse Ox O2 Del Method 03/05/23 07:21 36.6 C 68 18 118/59 L 94 Room Air 03/05/23 07:48 BiPAP 03/05/23 07:36 89 03/05/23 04:27 37.1 C 69 22 108/61 96 CPAP 03/05/23 02:39 63 18 96 03/05/23 00:21 36.9 C 63 23 118/67 96 CPAP 03/04/23 21:53 69 16 95 03/04/23 21:52 BiPAP O2 Flow Rate 03/05/23 07:21 03/05/23 07:48 03/05/23 07:36 03/05/23 04:27 4 03/05/23 02:39 4 03/05/23 00:21 4 03/04/23 21:53 4 03/04/23 21:52 Laboratory Results 03/05/23 06:15 03/05/23 06:15 ABG this mornin.43, 84, 110, 56, 99% O2 sat BNP 25 Diagnostic Findings CXR with images personally reviewed by me. No pulmonary edema or vascular congestion on chest x-ray which shows cardiomegaly and hiatal hernia.
--- NOTE | 2023-03-05 09:22 | Neurology Consultation ---
Date of Consultation March 05, 2023 Assessment & Plan (1) Hypercarbia: Myoclonus is common secondary to hypercarbia and is consistent with her clinical history and labwork including resolution this morning after bipap. Do not suspect a primary movement disorder. Would continue to treat her respiratory issues and suspect this will resolve the jerking movements. If not, she can be referred to neurology as an outpatient. Please contact us with any further questions. Telehealth Consultation Telehealth Information Telehealth Information: I performed this visit using a real-time telehealth connection between my location and the patients location ([facility]). After connecting through interactive tele-video, patient was identified by name and date of and/or wristband check.Patient (or authorized healthcare artist's representative) was informed that this was a telemedicine visit and it was being conducted confidentially over secure lines. My office door was closed and no one else was present in the room with me.Patient (or authorized healthcare artist's representative) provided consent to proceed with the visit, expressed an understanding of privacy and security of the telemedicine visit, and gave permission to have a hospital artist's representative in the room in order to assist with the visit and to conduct portions of the visit, as needed. I informed the patient (or authorized healthcare artist's representative) that I reviewed their record and presented the opportunity for them to ask any questions regarding the visit today. The patient agreed to participate. History of Present Illness Reason for Consultation: Myoclonus Requesting Physician: Dr. Gallegos Attending Physician: Terrell Gallegos MD History of Present Illness Anais Persaud is a 62 yo F presenting with respiratory failure secondary to severe BEV and obesity hypoventilation. The patient states that since July she has been having intermittent jerking movements and dropping things like her coffee cup in the morning. She also reports falling asleep on the toilet at night and her legs giving out when walking back to the bed with frequent falls. She was started on CPAP a week ago but had difficulty keeping the mask on due to the jerking movements. She can not otherwise identify a pattern to the tremors but they are not occurring this morning after wearing her Bipap last night. She has otherwise not seen anyone for the tremors and is not taking any treatment for them. Allergies Allergy/AdvReac Type Severity Reaction Status Date / Time Penicillins Allergy Mild Verified 08/19/09 03:46 Home Medications Medication Instructions Recorded Confirmed Type amitriptyline 10 mg tablet 10 mg PO HS 03/04/23 03/04/23 History amitriptyline 25 mg tablet 25 mg PO HS 03/04/23 03/04/23 History buprenorphine 8 mg-naloxone 2 mg 1 film sublingual BID 03/04/23 03/04/23 History sublingual film cyanocobalamin (vitamin B-12) 1,000 mcg IM MONTHLY 03/04/23 03/04/23 History 1,000 mcg/mL injection solution donepezil 10 mg tablet 10 mg PO DAILY 03/04/23 03/04/23 History doxycycline hyclate 100 mg capsule 100 mg PO BID 03/04/23 03/04/23 History duloxetine 60 mg capsule,delayed 60 mg PO DAILY 03/04/23 03/04/23 History release folic acid 1 mg tablet 1 mg PO DAILY 03/04/23 03/04/23 History furosemide 20 mg tablet (Lasix) 20 mg PO BID 03/04/23 03/04/23 History levothyroxine 150 mcg tablet 150 mcg PO DAILY 03/04/23 03/04/23 History loratadine 10 mg tablet 10 mg PO DAILY PRN Allergy Symptoms 03/04/23 03/04/23 History methocarbamol 500 mg tablet 500 mg PO BID 03/04/23 03/04/23 History Patient History Medical History Chronic respiratory failure Hypothyroidism Hypoventilation associated with obesity syndrome Moderate dementia with behavioral disturbance Morbid obesity BEV on CPAP Postgastric surgery syndrome Psoriatic arthritis Surgical History H/O breast biopsy Hx of cholecystectomy Family History Other Alzheimer disease Breast cancer Hypertension Social History Smoking Status: Never smoker Second Hand Exposure: No; Do You Dip or Chew Tobacco: No; Tobacco Cessation Education Requested by Patient: No Hx Alcohol Use: No Hx Substance Use: No Preferred Language: Albanian Communication Ability: Effective Emergency Service Worker Required: No Beliefs That Will Affect Care: None Current Living Situation: Spouse Feels Safe at Home: Yes Safety Concerns: Feels Safe At This Time Assistive Devices: None Review of Systems +tremors Physical Exam Neurological Examination: Mental Status: Awake and alert. Oriented to person, place, and time. Fluent. Comprehension intact. Affect appropriate. Cranial Nerves: II: pupils 3/3 to 2/2, III/IV/: Versions intact without nystagmus V: Facial sensation symmetric to light touch VII: Facial expression symmetric VIII: Hearing intact to voice Motor: Strength was symmetric and antigravity throughout. Pronator drift was absent. There were no abnormal movements, no myoclonus or asterixis. Coordination: No dysmetria Reflexes: Unable to assess over telemedicine Results & Data Vital Signs (Past 12 Hours) Vital Signs Temp Pulse Pulse Resp BP Pulse Ox O2 Del Method 03/05/23 07:21 36.6 C 68 18 118/59 L 94 Room Air 03/05/23 07:48 BiPAP 03/05/23 07:36 89 03/05/23 04:27 37.1 C 69 22 108/61 96 CPAP 03/05/23 02:39 63 18 96 03/05/23 00:21 36.9 C 63 23 118/67 96 CPAP 03/04/23 21:53 69 16 95 03/04/23 21:52 BiPAP O2 Flow Rate 03/05/23 07:21 03/05/23 07:48 03/05/23 07:36 03/05/23 04:27 4 03/05/23 02:39 4 03/05/23 00:21 4 03/04/23 21:53 4 03/04/23 21:52 Laboratory Results Abnormal lab results 03/04/23 03/04/23 03/04/23 Range/Units 11:25 11:25 12:31 RBC 4.03 L (4.20-5.40) M/uL Hgb 10.8 L (12.0-16.0) g/dl Hct (37.0-47.0) % MCHC 29.2 L (32.0-36.0) g/dL ABG pCO2 (35-46) mmHg ABG pO2 (80-95) mmHg ABG HCO3 (19-24) mmol/L ABG O2 Saturation (90-95) % ABG Base Excess (-9-1.8) mEq/L VBG pH 7.34 L (7.36-7.41) VBG pCO2 99 H (38-50) mmHg Chloride 91 L (98-107) mmol/L Carbon Dioxide > 45 H* (21-32) mmol/L Creatinine 0.58 L (0.6-1.2) mg/dl BUN/Creatinine Ratio 32.8 H (10-20) Glucose 125 H (70-99(Fasting)) mg/dl 03/04/23 03/04/23 03/05/23 Range/Units 13:54 19:17 06:15 RBC (4.20-5.40) M/uL Hgb (12.0-16.0) g/dl Hct (37.0-47.0) % MCHC (32.0-36.0) g/dL ABG pCO2 85 H 84 H (35-46) mmHg ABG pO2 110 H (80-95) mmHg ABG HCO3 54 H 56 H (19-24) mmol/L ABG O2 Saturation 98.2 H 99.0 H (90-95) % ABG Base Excess 25.1 H 25.8 H (-9-1.8) mEq/L VBG pH (7.36-7.41) VBG pCO2 87 H (38-50) mmHg Chloride (98-107) mmol/L Carbon Dioxide (21-32) mmol/L Creatinine (0.6-1.2) mg/dl BUN/Creatinine Ratio (10-20) Glucose (70-99(Fasting)) mg/dl 03/05/23 03/05/23 Range/Units 06:15 06:15 RBC 3.80 L (4.20-5.40) M/uL Hgb 10.2 L (12.0-16.0) g/dl Hct 34.0 L (37.0-47.0) % MCHC 30.0 L (32.0-36.0) g/dL ABG pCO2 (35-46) mmHg ABG pO2 (80-95) mmHg ABG HCO3 (19-24) mmol/L ABG O2 Saturation (90-95) % ABG Base Excess (-9-1.8) mEq/L VBG pH (7.36-7.41) VBG pCO2 (38-50) mmHg Chloride 91 L (98-107) mmol/L Carbon Dioxide > 45 H* (21-32) mmol/L Creatinine 0.53 L (0.6-1.2) mg/dl BUN/Creatinine Ratio 30.2 H (10-20) Glucose 101 H (70-99(Fasting)) mg/dl
[2023-03-05] MEDS: DULoxetine HCL 60 MG CAP PO SCH ×2 (09:40→20:18)
[2023-03-05 10:46] LABS: Uric Acid 4.8 mg/dl (2.6-7.2)
[2023-03-05 12:16] LABS: Appearance Urine Clear (Clear); Bilirubin Urine Negative (Negative); Blood Urine Negative (Negative); Color Urine Yellow; Glucose Urine UA Negative (Negative); Ketones Urine Negative (Negative); Leukocyte Esterase Urine Negative (Negative); Nitrite Urine Negative (Negative); Protein Urine Negative (Negative); Specific Gravity Urine 1.011 (1.000-1.030); Urobilinogen Urine Negative (Negative); pH Urine 8.5 (4.5-7.5)
[2023-03-05 12:29] LABS: Urine Potassium 30.2 mmol/L
[2023-03-05 12:37] LABS: Creatinine Urine Random 32.8 mg/dl
--- NOTE | 2023-03-05 16:33 | Hospitalist Progress Note ---
Date of Service March 05, 2023 Assessment & Plan (1) Respiratory failure with hypoxia and hypercapnia: (2) Hypoventilation associated with obesity syndrome: (3) BEV on CPAP: (4) Morbid obesity: (5) Abdominal wall cellulitis: (6) Psoriatic arthritis: (7) Hypothyroidism: (8) Postgastric surgery syndrome: (9) Moderate dementia with behavioral disturbance: Plan This is a 62yo F with a PMH of hypersomnia with sleep apnea newly on CPAP, chronic hypoxic respiratory failure on 3L NC O2, moderate dementia with mood disturbance, morbid obesity with hypoventilation, history of medication noncompliance, hypothyroidism, dyslipidemia, post gastric surgery syndrome, psoriatic arthritis, h/o juvenile arthritis with chronic pain syndrome, myoclonic jerking and other medical problems listed below who presents due to abnormal labs in outpatient setting. 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 Sent in from outpatient ABG 7.34, pCO2 91.8 Recently started on 3L NC O2, CPAP at night for severe BEV, with recommendation for weight loss under medical supervision, due to see sleep med again 03/13 Acidosis resolved with bipap and seems to be tolerating mask, continue bipap trial for now Well compensated respiratory acidosis and associated metabolic alkalosis Appreciate pulmonary input and recommendation Will get outpatient records of PFT or sleep Test if any done Acetazolamide has been started We will monitor while in the hospital Discussed with the and the patient Metabolic alkalosis Appreciate nephrology input and recommendation We will monitor BMP History of myoclonic jerking Ongoing issues at home keeping CPAP mask on due to significant myoclonic jerking observed during exam despite trial of multiple masks Neuro consult for recommendations to better manage myoclonic jerking - currently on methocarbamol, amitriptyline Appreciate neuro consult and recommendation No further recommendation from the neurologist Abdominal wall cellulitis Has completed 7/10 day course of doxycycline as outpatient, still with presence of cellulitis, healing boil. MRSA swab pending, no leukocytosis. Continue Rocephin for now, nystatin There is no overt cellulitis involving the abdominal wall Continue with the current antibiotic BLE edema Recent 2D echo with preserved EF, on lasix 20mg BID in outpatient setting CXR without evidence of overt failure, BNP WNL so continue home dose, monitor volume statin Will hold Lasix and give acetazolamide to decrease bicarb level Moderate dementia with behavioral disturbance Established with [facility], Dr. Sands Currently lives with who provides care PT/OT evaluation H/o scoliosis with chronic pain syndrome History of spinal injections in the past, recently switched to regimen with methocarbamol, buprenorphine-naloxone Hypothyroidism Continue levothyroxine Postgastric surgery syndrome Continue B12, Folate and Vit D supplementation DVT Ppx: SQ lovenox Code status: FULL PCP: Carmelo Dispo: Admitting to PCU Admission and Anticipated Discharge Date Admission Date: March 04, 2023 Subjective 03/05/2023 The patient was seen and examined in telemetry unit in presence of the She has been pleasantly confused from the history of dementia but does not have any acute delirium Has been saturating normally on 2 L Currently advised to use the CPAP at nighttime Review of Systems Review of Systems: All systems reviewed and are unremarkable except as noted below Physical Exam Physical Exam: Lying in bed comfortably Constitutional: well developed, well nourished, + ill appearing and + obese Eyes: PERRL, conjunctivae normal, anicteric sclerae ENMT: external ear and nose normal, oropharynx normal Neck: trachea midline, no thyromegaly Respiratory: no respiratory distress Auscultation: + diminished lung sounds and + crackles (Minimal crackles at the bases) Cardiovascular: Rate/Rhythm: regular rate and regular rhythm; not tachycardic Heart Sounds: normal S1 and normal S2; no murmur Extremities: + edema (Trace to 1+ edema bilaterally) Gastrointestinal (Abdomen): Inspection/Auscultation: + abdomen distended and normal bowel sounds Percussion/Palpation: abdomen soft; abdomen nontender No evidence of abdominal wall cellulitis Musculoskeletal: Has significant scoliosis but no acute arthritis involving any of the joint Neurologic: Alert, awake and oriented. Pleasantly confused. Moving all limbs. No focal neurodeficit Lymphatic: no cervical or axillary lymphadenopathy Results & Data Results & Data Vital Signs (Past 12 Hours) Vital Signs Temp Pulse Pulse Resp BP Pulse Ox O2 Del Method 03/05/23 15:45 36.5 C 70 18 116/68 93 Nasal Cannula 03/05/23 15:39 72 03/05/23 11:25 36.6 C 64 18 119/70 94 Oxymask 03/05/23 07:21 36.6 C 68 18 118/59 L 94 Room Air 03/05/23 07:48 BiPAP 03/05/23 07:36 89 03/05/23 04:27 37.1 C 69 22 108/61 96 CPAP O2 Flow Rate 03/05/23 15:45 2 03/05/23 15:39 03/05/23 11:25 3 03/05/23 07:21 03/05/23 07:48 03/05/23 07:36 03/05/23 04:27 4 Laboratory Results Short CBC 03/05/23 Range/Units 06:15 WBC 7.87 (4.8-10.8) K/ul Hgb 10.2 L (12.0-16.0) g/dl Hct 34.0 L (37.0-47.0) % Plt Count 248 (130-400) K/uL BMP 03/05/23 06:15 Sodium 142 Potassium 3.8 Chloride 91 L Carbon Dioxide > 45 H* BUN 16 Creatinine 0.53 L Glucose 101 H Calcium 8.6 Urine 03/05/23 Range/Units 12:00 Urine Color Yellow Urine Appearance Clear (Clear) Urine pH 8.5 H (4.5-7.5) Ur Specific [place] 1.011 (1.000-1.030) Urine Protein Negative (Negative) Urine Glucose (UA) Negative (Negative) Medications Administered Current Inpatient Medications Acetaminophen (Acetaminophen 325 Mg Tab) 650 mg PO Q4H PRN PRN Reason: Pain or Fever Stop: 04/03/23 16:34 Amitriptyline HCl (Amitriptyline Hcl 25 Mg Tab) 25 mg PO HS [facility] Stop: 04/03/23 20:59 Last Admin: 03/04/23 20:07 Dose: 25 mg Amitriptyline HCl (Amitriptyline Hcl 10 Mg Tab) 10 mg PO HS [facility] Stop: 04/03/23 20:59 Last Admin: 03/04/23 20:07 Dose: 10 mg Buprenorphine/Naloxone (Buprenorphine/Naloxone 8/2 Mg Tab) 1 tab SL BID [facility] Stop: 04/03/23 20:59 Last Admin: 03/05/23 08:32 Dose: 1 tab Donepezil HCl (Donepezil Hcl 10 Mg Tab) 10 mg PO DAILY [facility] Stop: 04/04/23 08:59 Last Admin: 03/05/23 08:33 Dose: 10 mg Duloxetine HCl (Duloxetine Hcl 60 Mg Cap) 60 mg PO DAILY [facility] Stop: 04/04/23 08:59 Last Admin: 03/05/23 09:40 Dose: 60 mg Enoxaparin Sodium (Enoxaparin Inj 40 Mg/0.4 Ml Syr) 40 mg SQ Q24H [facility] Stop: 04/03/23 16:34 Last Admin: 03/04/23 20:08 Dose: 40 mg Folic Acid (Folic Acid 1 Mg Tab) 1 mg PO DAILY [facility] Stop: 04/04/23 08:59 Last Admin: 03/05/23 08:34 Dose: 1 mg Furosemide (Furosemide 20 Mg Tab) 20 mg PO BID17 [facility] Stop: 04/03/23 16:59 Last Admin: 03/05/23 08:36 Dose: 20 mg Acetazolamide 250 mg/ Syringe 2.5 mls @ 0.833 mls/min IV BID [facility] Stop: 04/04/23 20:59 Levothyroxine Sodium (Levothyroxine Sodium 150 Mcg Tablet) 150 mcg PO DAILYBB [facility] Stop: 04/04/23 06:29 Last Admin: 03/05/23 05:35 Dose: 150 mcg Loratadine (Loratadine 10 Mg Tab) 10 mg PO DAILY PRN PRN Reason: Allergy Symptoms Stop: 04/03/23 16:34 Methocarbamol (Methocarbamol 500 Mg Tablet) 500 mg PO BID [facility] Stop: 04/03/23 20:59 Last Admin: 03/05/23 08:36 Dose: 500 mg Polyethylene Glycol (Polyethylene (Miralax) 17 Gm Pack) 17 gm PO DAILY PRN PRN Reason: Constipation Stop: 04/03/23 16:34
[2023-03-05] MEDS: acetaZOLAMIDE 250 MG in SYRINGE 0 ML IV SCH (20:17)
[2023-03-05] MEDS: ENOXAPARIN INJ 40 MG/0.4 ML SYR SQ SCH (20:17)
[2023-03-05] MEDS: AMITRIPTYLINE HCL 25 MG TAB PO SCH (20:18)
[2023-03-05] MEDS: AMITRIPTYLINE HCL 10 MG TAB PO SCH (20:18)
[2023-03-06] MEDS: LEVOTHYROXINE SODIUM 150 MCG TABLET PO SCH (06:12)
--- NOTE | 2023-03-06 07:31 | Pulmonology Progress Note ---
Date of Service March 06, 2023 Assessment & Plan (1) Respiratory failure with hypoxia and hypercapnia: (2) BEV on CPAP: (3) Chronic respiratory failure: (4) Thoracic scoliosis: (5) Metabolic alkalosis: (6) Morbid obesity: Plan Chest x-ray 03/04/2023 personally reviewed: Portable film, good inspiratory effort, significant thoracic scoliosis appreciated, bilateral costophrenic and cardiophrenic tigecycline. No clear lung infiltrate appreciated 2D echo 02/26/2023: EF 55-60%, RV not well visualized, normal systolic function ABG 03/05/2023: 7.43/84/110 on 4 L nasal cannula -- Acute on chronic hypoxic hypercapnic respiratory failure Hypercapnia is most likely from BEV/OHS Hypoxia is likely from VQ mismatch from morbid obesity and lower lobe atelectasis Keep O2 saturation between 88-92%, do not over oxygenate the patient Continue with BiPAP nightly and as needed shortness of breath --Metabolic alkalosis Likely compensation to chronic hypercapnic respiratory failure as well as Lasix --BEV Patient recently had sleep study done Continue with BiPAP nightly and as needed shortness of breath I was able to look at the polysomnography which was done 01/02/2023. AHI 67 with severe desaturation lowest being 64% She was tried on titration but optimal titration was not able to be obtained. AutoPap 10-20 cm H2O was given with 3 L of oxygen bled into it --Questionable history of asthma Patient does not have any significant atopy, no childhood or family history of asthma Possibility of her having Edac is high given the BMI PFT as an outpatient will be beneficial --History of lupus and daughter No personal history of any autoimmune disease Plan: Continue with acetazolamide. Repeat ABG in the morning Would continue with auto CPAP at home. She has an appointment with dog or animal sitter on 03/13/2023 what compliance report could be looked into to see how much central apnea episodes she has If she has significant central apneic episodes while on auto CPAP then BiPAP with backup rate could be thought of Case was discussed with Dr. Gallegos All questions and queries of patient and patient's were answered in depth Please note the above document was generated using voice recognition software. It may contain grammatical, syntax or spelling errors.Any formal questions or concerns about the content, text or information contained within the body of this dictation should be directly addressed to the provider for clarification. Admission and Anticipated Discharge Date Admission Date: March 04, 2023 Subjective Patient seen and examined at bedside. No acute distress, no adverse events overnight. was also in the room at the time of examination Overall she says she is feeling better since coming to the hospital Has been using her CPAP machine at night She is comfortable with the mask that she has right now. Denies any headache No shortness of breath No headache, no blurry vision Fair appetite Review of Systems Review of Systems: All systems reviewed & are unremarkable except as noted in Subjective Physical Exam Physical Exam: Constitutional: No acute distress HEENT: EOMI, PERRLA Respiratory system: Good air entry bilaterally, no rhonchi, no crackles, no wheezing CVS: S1-S2 positive, no murmurs or gallops Abdomen: Soft, nontender, nondistended, positive bowel sounds x4 obese Extremities: +2 pulses bilaterally radialis/ dorsalis pedis, no cyanosis, +2 pitting edema bilateral lower extremity Neuro: Awake alert oriented x3 Psych: Normal mood and affect G/U: No Kim Musculoskeletal: Thoracic scoliosis Skin: no rashes, warm and dry Lymphatic: no cervical or axillary lymphadenopathy Results & Data Results & Data Vital Signs (Past 12 Hours) Vital Signs Temp Pulse Pulse Resp BP Pulse Ox O2 Del Method 03/06/23 03:00 36.9 C 71 22 111/68 98 Room Air 03/06/23 02:30 75 20 97 03/06/23 01:27 81 24 98 03/05/23 23:00 37.0 C 75 19 103/67 91 Room Air 03/05/23 20:41 Nasal Cannula O2 Flow Rate 03/06/23 03:00 03/06/23 02:30 3 03/06/23 01:27 3 03/05/23 23:00 03/05/23 20:41 1 Laboratory Results 03/05/23 06:15 03/05/23 06:15 PG Care Time/CCT Total # of Minutes Spent Total Time Spent with Patient: Total time spent is greater than 50% in coordination of care (as documented) at patient's floor/unit and/or counseling patient: Coding Level of Care Code 37415 SUB INP/OBS CARE 2/35MIN Diagnoses Respiratory failure with hypoxia and hypercapnia J96.91; J96.92 BEV on CPAP G47.33 Chronic respiratory failure J96.10 Thoracic scoliosis M41.9 Metabolic alkalosis E87.3 Morbid obesity E66.01
[2023-03-06 07:40] LABS: Basophils # (auto) 0.06 K/uL (0-0.2); Basophils % (auto) 0.7 %; Eosinophils # (auto) 0.46 K/uL (0-0.50); Eosinophils % (auto) 5.2 %; Hematocrit (blood only) 34.3 % (37.0-47.0); Hemoglobin 10.4 g/dl (12.0-16.0); Immature Granulocytes # (auto) 0.04 K/uL (0.01-0.20); Immature Granulocytes % (auto) 0.5 %; Lymphocytes # (auto) 2.21 K/uL (1.2-3.4); Mean Corpuscular Hemoglobin 26.9 pg (25.0-34.0); Mean Corpuscular Hgb Conc 30.3 g/dL (32.0-36.0); Mean Corpuscular Volume 88.6 fL (80.0-100.0); Mean Platelet Volume 9.7 fL (9.4-12.4); Monocytes # (auto) 0.61 K/uL (0.11-0.59); Monocytes % (auto) 6.9 %; Neutrophils # (auto) 5.47 K/uL (1.40-6.50); Neutrophils % (auto) 61.7 %; Platelet Count 223 K/uL (130-400); RDW Coefficient of Variation 13.5 % (11.5-14.5); RDW Standard Deviation 43.8 fL (36.4-46.3); Red Blood Count 3.87 M/uL (4.20-5.40); White Blood Count 8.85 K/ul (4.8-10.8)
[2023-03-06 08:12] LABS: Albumin Globulin Ratio 0.9 (0.9-2); Albumin Level 3.4 gm/dl (3.4-5.0); BUN Creatinine Ratio 23.9 (10-20); Bilirubin,Total 0.4 mg/dl (0.2-1.0); Calcium 8.7 mg/dl (8.6-10.3); Creatinine Clr Calc Pharmacy 100.6 ml/min; Est GFR (African American) 109.2 ml/min; Est GFR (Non-African American) 94.2 ml/min; Globulin 3.9 gm/dl (2.5-4.0); Magnesium 2.3 mg/dl (1.7-2.4); Potassium 3.7 mmol/L (3.5-5.1); Total Protein 7.3 gm/dl (6.0-8.3)
[2023-03-06 08:45] LABS: Phosphorus 4.1 mg/dl (2.5-4.9)
[2023-03-06] MEDS: METHOCARBAMOL 500 MG TABLET PO SCH (08:55)
[2023-03-06] MEDS: FOLIC ACID 1 MG TAB PO SCH (08:55)
[2023-03-06] MEDS: DULoxetine HCL 60 MG CAP PO SCH (08:55)
[2023-03-06] MEDS: DONEPEZIL HCL 10 MG TAB PO SCH (08:55)
[2023-03-06] MEDS: acetaZOLAMIDE 250 MG in SYRINGE 0 ML IV SCH (08:58)
[2023-03-06] MEDS: BUPRENORPHINE/NALOXONE 8/2 MG TAB SL SCH (08:58)
[2023-03-06] MEDS ORDERED: MICONAZOLE NITRATE POWDER 85 GM EXT SCH (09:00)
--- NOTE | 2023-03-06 13:07 | Hospitalist Progress Note ---
Date of Service March 06, 2023 Assessment & Plan (1) Respiratory failure with hypoxia and hypercapnia: (2) Hypoventilation associated with obesity syndrome: (3) BEV on CPAP: (4) Morbid obesity: (5) Abdominal wall cellulitis: (6) Psoriatic arthritis: (7) Hypothyroidism: (8) Postgastric surgery syndrome: (9) Moderate dementia with behavioral disturbance: Plan This is a 62yo F with a PMH of hypersomnia with sleep apnea newly on CPAP, chronic hypoxic respiratory failure on 3L NC O2, moderate dementia with mood disturbance, morbid obesity with hypoventilation, history of medication noncompliance, hypothyroidism, dyslipidemia, post gastric surgery syndrome, psoriatic arthritis, h/o juvenile arthritis with chronic pain syndrome, myoclonic jerking and other medical problems listed below who presents due to abnormal labs in outpatient setting. 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 Sent in from outpatient ABG 7.34, pCO2 91.8 Recently started on 3L NC O2, CPAP at night for severe BEV, with recommendation for weight loss under medical supervision, due to see sleep med again 03/13 Acidosis resolved with bipap and seems to be tolerating mask, continue bipap trial for now Well compensated respiratory acidosis and associated metabolic alkalosis Appreciate pulmonary input and recommendation Will get outpatient records of PFT or sleep Test if any done Acetazolamide has been started We will monitor while in the hospital Discussed with the and the patient Clinically much better today and has been saturating normally on 1 to 2 L of nasal cannula oxygen Has been using CPAP at nighttime with new fitted mask and was advised to do that at home Has been ambulating in the room and in the hallway Has had physical therapy and recommended home She will be discharged home this afternoon-she was advised to keep appointment with outpatient stitch separator Metabolic alkalosis Appreciate nephrology input and recommendation We will monitor BMP She will continue with acetazolamide for 6 doses in total and then will go back to furosemide History of myoclonic jerking Ongoing issues at home keeping CPAP mask on due to significant myoclonic jerking observed during exam despite trial of multiple masks Neuro consult for recommendations to better manage myoclonic jerking - currently on methocarbamol, amitriptyline Appreciate neuro consult and recommendation No further recommendation from the neurologist Abdominal wall cellulitis Has completed 7/10 day course of doxycycline as outpatient, still with presence of cellulitis, healing boil. MRSA swab pending, no leukocytosis. Continue Rocephin for now, nystatin There is no overt cellulitis involving the abdominal wall Continue with the current antibiotic Antibiotics are not needed anymore BLE edema Recent 2D echo with preserved EF, on lasix 20mg BID in outpatient setting CXR without evidence of overt failure, BNP WNL so continue home dose, monitor volume statin Will hold Lasix and give acetazolamide to decrease bicarb level Continue furosemide as an outpatient after finishing acetazolamide Moderate dementia with behavioral disturbance Established with [facility], Dr. Sands Currently lives with who provides care PT/OT evaluation H/o scoliosis with chronic pain syndrome History of spinal injections in the past, recently switched to regimen with methocarbamol, buprenorphine-naloxone Hypothyroidism Continue levothyroxine Postgastric surgery syndrome Continue B12, Folate and Vit D supplementation DVT Ppx: SQ lovenox Code status: FULL PCP: Carmelo Dispo: Admitting to PCU Will be discharged home this afternoon Admission and Anticipated Discharge Date Admission Date: March 04, 2023 Subjective 03/05/2023 The patient was seen and examined in telemetry unit in presence of the She has been pleasantly confused from the history of dementia but does not have any acute delirium Has been saturating normally on 2 L Currently advised to use the CPAP at nighttime 03/06/2023 The patient was seen and examined in telemetry unit in presence of the She has been feeling much better and sitting at the edge of the bed No shortness of breath at rest and requiring less oxygen at around 1 to 2 L to maintain saturation No cough, fever or chills, no abdominal pain nausea no vomiting Review of Systems Review of Systems: All systems reviewed and are unremarkable except as noted below Physical Exam Physical Exam: Sitting at the edge of the bed without any acute distress Constitutional: well developed, well nourished, + ill appearing and + obese Eyes: PERRL, conjunctivae normal, anicteric sclerae ENMT: external ear and nose normal, oropharynx normal Neck: trachea midline, no thyromegaly Respiratory: no respiratory distress Auscultation: + diminished lung sounds and + crackles (Minimal crackles at the bases) Cardiovascular: Rate/Rhythm: regular rate and regular rhythm; not tachycardic Heart Sounds: normal S1 and normal S2; no murmur Extremities: + edema (Trace to 1+ edema bilaterally) Gastrointestinal (Abdomen): Inspection/Auscultation: + abdomen distended and normal bowel sounds Percussion/Palpation: abdomen soft; abdomen nontender No evidence of abdominal wall cellulitis Musculoskeletal: No acute arthritis involving any of the joint Neurologic: normal touch/pain/proprioception and moves all extremities; no focal motor deficits Psychiatric: Pleasantly confused Lymphatic: no cervical or axillary lymphadenopathy Results & Data Results & Data Vital Signs (Past 12 Hours) Vital Signs Temp Pulse Pulse Resp BP Pulse Ox O2 Del Method 03/06/23 12:10 37.0 C 72 19 114/71 90 Nasal Cannula 03/06/23 10:06 Nasal Cannula 03/06/23 09:00 69 03/06/23 08:08 37.0 C 72 18 118/71 93 Nasal Cannula 03/06/23 03:00 36.9 C 71 22 111/68 98 Room Air 03/06/23 02:30 75 20 97 03/06/23 01:27 81 24 98 O2 Flow Rate 03/06/23 12:10 2.0 03/06/23 10:06 1 03/06/23 09:00 03/06/23 08:08 2.0 03/06/23 03:00 03/06/23 02:30 3 03/06/23 01:27 3 Laboratory Results Short CBC 03/06/23 Range/Units 07:24 WBC 8.85 (4.8-10.8) K/ul Hgb 10.4 L (12.0-16.0) g/dl Hct 34.3 L (37.0-47.0) % Plt Count 223 (130-400) K/uL BMP 03/06/23 07:24 Sodium 140 Potassium 3.7 Chloride 95 L Carbon Dioxide 44 H* BUN 16 Creatinine 0.67 Glucose 105 H Calcium 8.7 Liver Function 03/06/23 Range/Units 07:24 Total Bilirubin 0.4 (0.2-1.0) mg/dl AST 24 (13-39) U/L ALT 12 (7-52) U/L Alkaline Phosphatase 88 (34-104) U/L Albumin 3.4 (3.4-5.0) gm/dl Medications Administered Current Inpatient Medications Acetaminophen (Acetaminophen 325 Mg Tab) 650 mg PO Q4H PRN PRN Reason: Pain or Fever Stop: 04/03/23 16:34 Amitriptyline HCl (Amitriptyline Hcl 25 Mg Tab) 25 mg PO HS [facility] Stop: 04/03/23 20:59 Last Admin: 03/05/23 20:18 Dose: 25 mg Amitriptyline HCl (Amitriptyline Hcl 10 Mg Tab) 10 mg PO HS [facility] Stop: 04/03/23 20:59 Last Admin: 03/05/23 20:18 Dose: 10 mg Buprenorphine/Naloxone (Buprenorphine/Naloxone 8/2 Mg Tab) 1 tab SL BID [facility] Stop: 04/03/23 20:59 Last Admin: 03/06/23 08:58 Dose: 1 tab Donepezil HCl (Donepezil Hcl 10 Mg Tab) 10 mg PO DAILY [facility] Stop: 04/04/23 08:59 Last Admin: 03/06/23 08:55 Dose: 10 mg Duloxetine HCl (Duloxetine Hcl 60 Mg Cap) 60 mg PO DAILY [facility] Stop: 04/04/23 08:59 Last Admin: 03/06/23 08:55 Dose: 60 mg Enoxaparin Sodium (Enoxaparin Inj 40 Mg/0.4 Ml Syr) 40 mg SQ Q24H [facility] Stop: 04/03/23 16:34 Last Admin: 03/05/23 20:17 Dose: 40 mg Folic Acid (Folic Acid 1 Mg Tab) 1 mg PO DAILY [facility] Stop: 04/04/23 08:59 Last Admin: 03/06/23 08:55 Dose: 1 mg Furosemide (Furosemide 20 Mg Tab) 20 mg PO BID17 [facility] Stop: 04/03/23 16:59 Last Admin: 03/05/23 08:36 Dose: 20 mg Acetazolamide 250 mg/ Syringe 2.5 mls @ 0.833 mls/min IV BID [facility] Stop: 04/04/23 20:59 Last Admin: 03/06/23 08:58 Dose: 0.833 mls/min Levothyroxine Sodium (Levothyroxine Sodium 150 Mcg Tablet) 150 mcg PO DAILYBB [facility] Stop: 04/04/23 06:29 Last Admin: 03/06/23 06:12 Dose: 150 mcg Loratadine (Loratadine 10 Mg Tab) 10 mg PO DAILY PRN PRN Reason: Allergy Symptoms Stop: 04/03/23 16:34 Methocarbamol (Methocarbamol 500 Mg Tablet) 500 mg PO BID [facility] Stop: 04/03/23 20:59 Last Admin: 03/06/23 08:55 Dose: 500 mg Miconazole Nitrate (Miconazole Nitrate Powder 85 Gm) 1 appln EXT BID [facility] Stop: 04/05/23 08:59 Last Admin: 03/06/23 10:04 Dose: 1 appln Polyethylene Glycol (Polyethylene (Miralax) 17 Gm Pack) 17 gm PO DAILY PRN PRN Reason: Constipation Stop: 04/03/23 16:34
--- NOTE | 2023-03-07 07:43 | Discharge Summary ---
Date of Service March 07, 2023 Admission HPI Per Admitting Provider This is a 62yo F with a PMH of hypersomnia with sleep apnea newly on CPAP, chronic hypoxic respiratory failure on 3L NC O2, moderate dementia with mood disturbance, morbid obesity with hypoventilation, history of medication noncompliance, hypothyroidism, dyslipidemia, post gastric surgery syndrome, psoriatic arthritis, h/o juvenile arthritis with chronic pain syndrome, myoclonic jerking and other medical problems listed below who presents due to abnormal labs in outpatient setting. History per extensive chart review and discussion with patient's and daugher at bedside. Recently moved back to the area from [place] and family notes a steady cognitive decline over the past six months but a more significant one in the past week with multiple new health issues. Daughter states there have been a lot of new medications and changes in care providers since move and they are just starting to find some equilibrium. Was started on 3L O2 daily and also recently diagnosed with BEV and started on CPAP. Due to significant myoclonic jerks, patient knocks off her mask at night and then wakes up somnolent. Has been in contact with sleep medicine to try various masks and nothing seems to stay on during the night. Receives care from her but he is unable to handle the level of care she is currently requiring, especially with sleep disturbance issues. Patient has been seen in PCP's office multiple times recently, first for a cyst on pannus that was painful. That cyst has been draining per patient and is less painful but area around it on pannus remains red and painful and itchy. Was started on a 10 d co urse of doxycycline for abdominal wall cellulitis due to complete on 03/06. Was also noted to have a 20 lb weight gain since November of this year. Started on lasix and underwent echo on 02/26/23 which revealed preserved EF 55-60%, no regional wall motion abnormality. Is currently taking lasix 20mg BID for BLE edema that seems worse than previous. Underwent extensive labwork as an outpatient and ABG from 03/04 from earlier today revealed pH of 7.23 and pCO2 of 92 and was sent to ED for further evaluation of hypercarbia and respiratory acidosis. In ED, patient is tolerating bipap mask without issue. Family at bedside state she is becoming more alert and responsive since placed on mask. No pain, pleasantly confused but able to answer simple questions. Still with discomfort on abdominal wall. No F/C, lightheadedness, SOB, wheezing, CP, N/V, abdominal pain, dysuria, diarrhea or constipation. Admission Exam Per Admitting Provider Physical Exam: General Appearance:WD/WN, vitals as above, NAD, sitting up in bed, lethargic but able to answer yes/no questions, wearing bipap mask Head: normocephalic, atraumatic Eyes:normal inspection, PERRL, conjunctivae normal, anicteric sclerae ENT: hard of hearing, external ear and nose normal, oropharynx normal Neck: normal visual inspection, trachea midline, no thyromegaly Respiratory:normal respiratory effort,diminished lung sounds bilaterally, no wheeze, rales, rhonchi. No accessory muscle use Cardiovascular: regular rate, rhythm, no murmur, normal peripheral pulses, 1+ BLE edema. Vessels: unable to visualize JVD 2/2 habitus Chest: normal inspection of chest Abdomen/GI: normal bowel sounds, protuberant but soft, nontender, no hepatosplenomegaly Extremities/Musculoskeletal: no cyanosis or clubbing, extremities motor strength 5/5 Neurologic: PERRL, EOMI, accommodation nl, no face palsy, no dysarthria, CN's II-XI intact bilaterally and moves all extremities Psychiatric:A+Ox2, lethargic as above Skin: + pannus above groin area erythematous, warm with healing lesion, no drainage observed. Normal color, warm/dry Principal Diagnosis Hypercarbic respiratory failure, metabolic alkalosis, sleep apnea on CPAP Discharge Exam Sitting at the edge of the bed without any acute distress Constitutional well developed, well nourished, + ill appearing and + obese Eyes PERRL, conjunctivae normal, anicteric sclerae ENMT external ear and nose normal, oropharynx normal Neck trachea midline, no thyromegaly Respiratory no respiratory distress Auscultation: + diminished lung sounds and + crackles (Minimal crackles at the bases) Cardiovascular Rate/Rhythm: regular rate and regular rhythm; not tachycardic Heart Sounds: normal S1 and normal S2; no murmur Extremities: + edema (Trace to 1+ edema bilaterally) Gastrointestinal (Abdomen) Inspection/Auscultation: + abdomen distended and normal bowel sounds Percussion/Palpation: abdomen soft; abdomen nontender Neurologic normal touch/pain/proprioception and moves all extremities; no focal motor deficits Lymphatic no cervical or axillary lymphadenopathy Discharge Data Allergies Allergy/AdvReac Type Severity Reaction Status Date / Time Penicillins Allergy Mild Verified 08/19/09 03:46 monosodium glutamate Allergy Verified 03/06/23 12:53 Consultations 03/04/23 12:41 ED Decision to Admit Stat 03/05/23 08:00 Consult Neurology Routine 03/05/23 08:51 Consult Pulmonology Routine 03/05/23 09:26 Consult Nephrology Routine Hospital Course (1) Respiratory failure with hypoxia and hypercapnia: (2) Hypoventilation associated with obesity syndrome: (3) BEV on CPAP: (4) Morbid obesity: (5) Abdominal wall cellulitis: (6) Psoriatic arthritis: (7) Hypothyroidism: (8) Postgastric surgery syndrome: (9) Moderate dementia with behavioral disturbance: Plan This is a 62yo F with a PMH of hypersomnia with sleep apnea newly on CPAP, chronic hypoxic respiratory failure on 3L NC O2, moderate dementia with mood disturbance, morbid obesity with hypoventilation, history of medication noncompliance, hypothyroidism, dyslipidemia, post gastric surgery syndrome, psoriatic arthritis, h/o juvenile arthritis with chronic pain syndrome, myoclonic jerking and other medical problems listed below who presents due to abnormal labs in outpatient setting. 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 Sent in from outpatient ABG 7.34, pCO2 91.8 Recently started on 3L NC O2, CPAP at night for severe BEV, with recommendation for weight loss under medical supervision, due to see sleep med again 03/13 Acidosis resolved with bipap and seems to be tolerating mask, continue bipap trial for now Well compensated respiratory acidosis and associated metabolic alkalosis Appreciate pulmonary input and recommendation Will get outpatient records of PFT or sleep Test if any done Acetazolamide has been started We will monitor while in the hospital Discussed with the and the patient Clinically much better today and has been saturating normally on 1 to 2 L of nasal cannula oxygen Has been using CPAP at nighttime with new fitted mask and was advised to do that at home Has been ambulating in the room and in the hallway Has had physical therapy and recommended home She will be discharged home this afternoon-she was advised to keep appointment with outpatient enrober Metabolic alkalosis Appreciate nephrology input and recommendation We will monitor BMP She will continue with acetazolamide for 6 doses in total and then will go back to furosemide History of myoclonic jerking Ongoing issues at home keeping CPAP mask on due to significant myoclonic jerking observed during exam despite trial of multiple masks Neuro consult for recommendations to better manage myoclonic jerking - currently on methocarbamol, amitriptyline Appreciate neuro consult and recommendation No further recommendation from the neurologist Abdominal wall cellulitis Has completed 7/10 day course of doxycycline as outpatient, still with presence of cellulitis, healing boil. MRSA swab pending, no leukocytosis. Continue Rocephin for now, nystatin There is no overt cellulitis involving the abdominal wall Continue with the current antibiotic Antibiotics are not needed anymore BLE edema Recent 2D echo with preserved EF, on lasix 20mg BID in outpatient setting CXR without evidence of overt failure, BNP WNL so continue home dose, monitor volume statin Will hold Lasix and give acetazolamide to decrease bicarb level Continue furosemide as an outpatient after finishing acetazolamide Moderate dementia with behavioral disturbance Established with [facility], Dr. Sands Currently lives with who provides care PT/OT evaluation H/o scoliosis with chronic pain syndrome History of spinal injections in the past, recently switched to regimen with methocarbamol, buprenorphine-naloxone Hypothyroidism Continue levothyroxine Postgastric surgery syndrome Continue B12, Folate and Vit D supplementation DVT Ppx: SQ lovenox Code status: FULL PCP: Carm[facility] Dispo: Admitting to PCU Will be discharged home this afternoon Total Time Total Time Spent Total Time Spent (In Minutes): 40 minutes Discharge Plan Discharge Items Patient Disposition: Home - Home Health Services Reason For Visit: HYPERCARBIC RESP FAILURE Discharge Diagnosis: Hypercarbic respiratory failure, metabolic alkalosis, sleep apnea on CPAP Condition on Discharge: Fair Activity: Resume your previous activity Non-emergency contact: Primary Care Provider Call non-emergency contact if: you have any medication questions and your symptoms worsen Follow-up/Referrals: Deborah Bolden [Physician] - (Date & Time 03/13/2023 4:00 PM Provider [facility] [place] [facility] ) Jessica Rhodes MD [Primary Care Provider] - (Date & Time 03/11/2023 10:20 AM Provider Jessica Rhodes MD Department General Internal Medicine [facility] ) Diet: Regular Addtl Attending Provider Instructions: Please take precautions to avoid falls We will continue acetazolamide for 4 more doses and then she will go back to her usual dose of Lasix at home. Do not take furosemide while you are on acetazolamide Would continue with auto CPAP at home. She has an appointment with enrober on 03/13/2023 what compliance report could be looked into to see how much central apnea episodes she has If she has significant central apneic episodes while on auto CPAP then BiPAP with backup rate could be thought of Please continue take your medications as advised Please give appointment with your healthcare providers Pending Studies at Discharge: No Stand-Alone Forms: [facility], Smoking Cessation Medications and DC Order Prescriptions: New acetazolamide 250 mg tablet 250 mg PO BID Qty: 4 0RF Rx Instructions: For 2 days only and then start taking furosemide as directed. Do not take any furosemide while you are on acetazolamide Continued amitriptyline 25 mg tablet 25 mg PO HS Rx Instructions: take along with 10mg amitriptyline 10 mg tablet 10 mg PO HS Rx Instructions: to take additionally with 25mg HS cyanocobalamin (vitamin B-12) 1,000 mcg/mL solution 1,000 mcg IM MONTHLY buprenorphine-naloxone 8-2 mg film 1 film sublingual BID methocarbamol 500 mg tablet 500 mg PO BID Rx Instructions: patient taking differently: 1,000mg daily donepezil 10 mg Tablet 10 mg PO DAILY levothyroxine 150 mcg tablet 150 mcg PO DAILY folic acid 1 mg Tablet 1 mg PO DAILY furosemide [Lasix] 20 mg Tablet 20 mg PO BID loratadine 10 mg Tablet 10 mg PO DAILY PRN (Reason: Allergy Symptoms) duloxetine 60 mg capsule,delayed release(DR/EC) 60 mg PO DAILY Discontinued doxycycline hyclate 100 mg Capsule 100 mg PO BID Rx Instructions: scheduled through 03/06 Discharge Orders: Discharge Order (Routine); Ordered 03/06/23 Ordered By: Terrell Gallegos Admission Data Admit Date/Time: 03/04/23 13:04 Attending Provider: Terrell Gallegos Admit Provider: Jo Short Primary Care Provider: Jessica Rhodes Other Providers: Jo Short ; Jimmy Perez ; Emily Knapp ; April Berry ; [facility] Other Interventions: Discharge Summary Assessment (RN) Last Done: 03/06/23 13:21
[2023-03-08 13:12] LABS: Uric Acid, Random Urine 23 mg/dL
== END 2023-03-06 14:10 | disposition home health service (06) | DRG 205 ==
LOC: ED 10:24 → SUATTDRO 13:04 → EDINP 13:04 → 2E 16:36

== ENCOUNTER 2023-03-16 15:17 | Inpatient (IN) ==
[2023-03-16] MEDS ORDERED: ACETAMINOPHEN 325 MG TAB PO STA (15:51)
[2023-03-16 16:12] LABS: Basophils # (auto) 0.05 K/uL (0.00-0.20); Basophils % (auto) 0.5 %; Eosinophils # (auto) 0.52 K/uL (0.00-0.50); Hematocrit (blood only) 37.2 % (37.0-47.0); Hemoglobin 11.1 g/dl (12.0-16.0); Immature Granulocytes # (auto) 0.05 K/uL (0.01-0.20); Immature Granulocytes % (auto) 0.5 %; Lymphocytes # (auto) 2.33 K/uL (1.20-3.40); Lymphocytes % (auto) 22.4 %; Mean Corpuscular Hemoglobin 26.4 pg (25.0-34.0); Mean Corpuscular Hgb Conc 29.8 g/dL (32.0-36.0); Mean Corpuscular Volume 88.4 fL (80.0-100.0); Mean Platelet Volume 9.9 fL (9.4-12.4); Monocytes % (auto) 6.7 %; Neutrophils # (auto) 6.75 K/uL (1.40-6.50); Neutrophils % (auto) 64.9 %; Platelet Count 306 K/uL (130-400); RDW Coefficient of Variation 13.7 % (11.5-14.5); RDW Standard Deviation 43.8 fL (36.4-46.3); Red Blood Count 4.21 M/uL (4.20-5.40)
[2023-03-16 16:47] LABS: Alanine Aminotransferase 14 U/L (7-52); Albumin Level 3.6 gm/dl (3.4-5.0); Alkaline Phosphatase 92 U/L (34-104); Anion Gap 3 (3-11); Aspartate Aminotransferase 26 U/L (13-39); BUN Creatinine Ratio 20.9 (10-20); Bilirubin,Total 0.3 mg/dl (0.2-1.0); Blood Urea Nitrogen 14 mg/dl (6-23); Carbon Dioxide 41 mmol/L (21-32); Chloride 95 mmol/L (98-107); Est GFR (African American) 108.4 ml/min; Est GFR (Non-African American) 93.5 ml/min; Globulin 3.6 gm/dl (2.5-4.0); Glucose 91 mg/dl (70-99(Fasting)); Potassium 3.8 mmol/L (3.5-5.1); Sodium 139 mmol/L (136-145); Total Protein 7.2 gm/dl (6.0-8.3)
[2023-03-16] MEDS ORDERED: OPTIRAY 320 100ml IV ONE ×2 (17:30→17:38)
--- NOTE | 2023-03-16 18:19 | CT Scan Report ---
CT facial bones w con CLINICAL HISTORY: L facial swelling/infection TECHNIQUE: Multidetector row helical CT of the maxillofacial bones was performed with administration of intravenous contrast, and processed with bone and soft tissue algorithms. Coronal and sagittal ref ormations were obtained. Automated dose lowering techniques and/or adjustment according to patient si ze were utilized for this exam. Comparison: None available at the time of this dictation. FINDINGS: There is a rim-enhancing subcutaneous fluid collection measuring 12 mm in the left buccal tissues wit h surrounding soft tissue stranding. There are enlarged left cervical and submandibular lymph nodes m easuring up to 8 mm in diameter. Nasal bones are normal. The mandible is intact. The temporomandibular joints are anatomically aligned . Pterygoid plates are intact. Zygomatic arches are intact. The globes are normal and symmetric, without proptosis, obvious disruption or lens dislocation. Ther e is no orbital radiopaque foreign body. The orbital salmon are intact. The retrobulbar fat is without evidence of disruption. Extraocular muscles are normal and symmetric. Optic nerve sheath complexes are normal in course and caliber. Imaged portions of the paranasal sinuses and mastoid air cells are clear. IMPRESSION: Findings compatible with an abscess in the left buccal subcutaneous fat with reactive soft tissue str anding and lymphadenopathy. ACT 112: Negative or not required by law. Electronically signed by: Sreekanth Swanson M.D. 03/16/2023 6:17 PM
[2023-03-16] MEDS ORDERED: CLINDAMYCIN/D5W 300 MG/50 ML BAG IV ONE (18:22)
[2023-03-16 18:41] LABS: HCO3 VBG 51 mmol/L; Oxygen Saturation VBG < 60.0 %; PCO2 VBG 77 mmHg (38-50); PO2 VBG 37 mmHg; pH VBG 7.43 (7.36-7.41)
[2023-03-16] MEDS ORDERED: MoRPHine SULFATE 2 MG/ML CARP IV STA (19:08)
[2023-03-16] MEDS ORDERED: HYDROmorphone INJ 0.5 MG/0.5 ML SYR IV STA (20:28)
--- NOTE | 2023-03-16 21:34 | History & Physical Report ---
Date of Service March 16, 2023 Assessment & Plan (1) Cellulitis and abscess of face: Plan: 62yo F with a PMH of hypersomnia with sleep apnea newly on CPAP, chronic hypoxic respiratory failure currently on 1L NC O2 as per patient, moderate dementia with mood disturbance, morbid obesity with hypoventilation, history of medication noncompliance, hypothyroidism, dyslipidemia, post gastric surgery syndrome, psoriatic arthritis, h/o juvenile arthritis with chronic pain syndrome, myoclonic jerking, sensorineural hearing loss bilateral, depression, history of kidney stones, was recently in the hospital for acute acute on chronic respiratory with hypoxia hypercarbia, obstructive apnea treated with BiPAP and acetazolamide discharged home comes back with left facial cellulitis and abscess Left facial cellulitis and abscess Failed outpatient treatment with doxycycline and Rocephin Started on IV clindamycin in the ER which will be continued Consulted oral maxillofacial surgery N.p.o. 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 Sands We will monitor H/o scoliosis with chronic pain syndrome History of spinal injections in the past, currently on methocarbamol, buprenorphine-naloxone Hypothyroidism On levothyroxine Post gastric surgery syndrome To continue B12, Folate and Vit D supplementation DVT prophylaxis SCDs for now Disposition med/telemetry Full code History of Present Illness Chief Complaint: Left facial cellulitis and abscess Primary Care Provider: Jessica Rhodes MD 62yo F with a PMH of hypersomnia with sleep apnea newly on CPAP, chronic hypoxic respiratory failure currently on 1L NC O2 as per patient, moderate dementia with mood disturbance, morbid obesity with hypoventilation, history of medication noncompliance, hypothyroidism, dyslipidemia, post gastric surgery syndrome, psoriatic arthritis, h/o juvenile arthritis with chronic pain syndrome, myoclonic jerking, sensorineural hearing loss bilateral, depression, history of kidney stones, was recently in the hospital for acute acute on chronic respiratory with hypoxia hypercarbia, obstructive apnea treated with BiPAP and acetazolamide discharged home comes back with left facial cellulitis and abscess. Patient states she scratched her face and she noticed some swelli ng last Saturday. Saw PCP for follow-up appointment posthospital discharge and was prescribed doxycycline for facial infection and a dose of Rocephin was given but infection was worsening and today it extended to the neck region and having lot of pain and was advised to come to the ER. Denies any fever. Denies any shortness of breath. No difficulty swallowing. She had some chest pain earlier but no chest pain now. Currently no cough. Has some headaches. No blurred visions. No earache or runny nose. No nausea. No abdominal pain. Normal bowel and bladder movements. Past medical history as mentioned above Past surgical history left breast biopsy, colonoscopy, endometrial cryoablation, hysteroscopy, lap sleeve gastrectomy, lumbar spinal shots, laparoscopic cholecystectomy, repair of the right Achilles tendon, Social history . No smoking. No alcohol use. No drug use. Family history mother has Alzheimer's, breast cancer hypertension obesity. Father has arthritis, asthma, diabetes, ear problems, depression, obesity. Aunt has breast cancer. Allergies Allergy/AdvReac Type Severity Reaction Status Date / Time Penicillins Allergy Mild Verified 08/19/09 03:46 monosodium glutamate Allergy Verified 03/06/23 12:53 Home Medications Medication Instructions Recorded Confirmed Type amitriptyline 10 mg tablet 10 mg PO HS 03/04/23 03/16/23 History amitriptyline 25 mg tablet 25 mg PO HS 03/04/23 03/16/23 History buprenorphine 8 mg-naloxone 2 mg 1 film sublingual BID 03/04/23 03/16/23 History sublingual film cyanocobalamin (vitamin B-12) 1,000 mcg IM MONTHLY 03/04/23 03/16/23 History 1,000 mcg/mL injection solution donepezil 10 mg tablet 10 mg PO DAILY 03/04/23 03/16/23 History duloxetine 60 mg capsule,delayed 60 mg PO DAILY 03/04/23 03/16/23 History release folic acid 1 mg tablet 1 mg PO DAILY 03/04/23 03/16/23 History furosemide 20 mg tablet (Lasix) 20 mg PO DAILY 03/04/23 03/16/23 History levothyroxine 150 mcg tablet 150 mcg PO DAILY 03/04/23 03/16/23 History loratadine 10 mg tablet 10 mg PO DAILY PRN Allergy Symptoms 03/04/23 03/16/23 History methocarbamol 500 mg tablet 500 mg PO BID 03/04/23 03/16/23 History doxycycline hyclate 100 mg capsule 100 mg PO BID 03/16/23 03/16/23 History fluconazole 150 mg tablet 150 mg PO DAILY PRN other 03/16/23 03/16/23 History nystatin 100,000 unit/gram topical 1 applic topical BID 03/16/23 03/16/23 History powder pediatric multivit no.158-iron fum 1 tab PO DAILY 03/16/23 03/16/23 History 18 mg-vit K1 10 mcg chewable tablet (Cerovite Jr) Past Med/Surg History Medical History Chronic respiratory failure Hypothyroidism Hypoventilation associated with obesity syndrome Moderate dementia with behavioral disturbance Morbid obesity BEV on CPAP Postgastric surgery syndrome Psoriatic arthritis Surgical History H/O breast biopsy H/O gastric sleeve Hx of cholecystectomy Family History Other Alzheimer disease Breast cancer Hypertension Social History Smoking Status: Never smoker Second Hand Exposure: No; Do You Dip or Chew Tobacco: No; Tobacco Cessation Education Requested by Patient: No Hx Alcohol Use: No Hx Substance Use: No Preferred Language: Syriac Communication Ability: Effective Legal Document Assistant Required: No Beliefs That Will Affect Care: None Current Living Situation: Spouse Other Information That Helps Us Care for You: No Feels Safe at Home: Yes Safety Concerns: Feels Safe At This Time Assistive Devices: CPAP, Glasses and Oxygen - Continuous Review of Systems Review of Systems: All systems reviewed & are unremarkable except as noted in HPI & below Physical Exam Physical Exam: General- Not in distress Head- Swelling of the lft cheek wit erythematous changes and mild swelling of left face extending to neck region. Eyes- PERRL, ENT- oropharynx clear Neck- supple, no JVD,. Lungs- clear to auscultation , no wheezing or crackles. Heart- regular rate and rhythm; no murmur, no gallop. Abdomen- normal bowel sounds, soft, erythematous rash in abdominal folds extending to pelvic region Extremities- lower extremity edema present. no erythema seen . Neuro- alert, oriented x 3; PERRL, EOMI; no facial palsy; no dysarthria;obeys commands, moves extremities Results & Data Results & Data Vital Signs (Past 12 Hours) Vital Signs Temp Pulse Pulse Resp BP BP Pulse Ox 03/16/23 20:22 57 L 22 106/45 L 93 03/16/23 18:37 60 03/16/23 18:13 36.7 C 64 20 128/64 99 03/16/23 15:26 36.6 C 66 20 136/75 95 O2 Del Method O2 Flow Rate 03/16/23 20:22 Nasal Cannula 1 03/16/23 18:37 03/16/23 18:13 Nasal Cannula 1 03/16/23 15:26 Nasal Cannula 1 Diagnostic Findings Laboratory Results WBC 10.40 K/ul (4.8-10.8) 03/16/23 15:45 RBC 4.21 M/uL (4.20-5.40) 03/16/23 15:45 Hgb 11.1 g/dl (12.0-16.0) L 03/16/23 15:45 Hct 37.2 % (37.0-47.0) 03/16/23 15:45 MCV 88.4 fL (80.0-100.0) 03/16/23 15:45 MCH 26.4 pg (25.0-34.0) 03/16/23 15:45 MCHC 29.8 g/dL (32.0-36.0) L 03/16/23 15:45 RDW Std Deviation 43.8 fL (36.4-46.3) 03/16/23 15:45 RDW Coeff of Jaron 13.7 % (11.5-14.5) 03/16/23 15:45 Plt Count 306 K/uL (130-400) 03/16/23 15:45 MPV 9.9 fL (9.4-12.4) 03/16/23 15:45 Immature Gran % (Auto) 0.5 % 03/16/23 15:45 Neut % (Auto) 64.9 % 03/16/23 15:45 Lymph % (Auto) 22.4 % 03/16/23 15:45 Woodson % (Auto) 6.7 % 03/16/23 15:45 Eos % (Auto) 5.0 % 03/16/23 15:45 Baso % (Auto) 0.5 % 03/16/23 15:45 Neut # (Auto) 6.75 K/uL (1.40-6.50) H 03/16/23 15:45 Lymph # (Auto) 2.33 K/uL (1.20-3.40) 03/16/23 15:45 Woodson # (Auto) 0.70 K/uL (0.11-0.59) H 03/16/23 15:45 Eos # (Auto) 0.52 K/uL (0.00-0.50) H 03/16/23 15:45 Baso # (Auto) 0.05 K/uL (0.00-0.20) 03/16/23 15:45 Immature Gran # (Auto) 0.05 K/uL (0.01-0.20) 03/16/23 15:45 VBG pH 7.43 (7.36-7.41) H 03/16/23 18:36 VBG pCO2 77 mmHg (38-50) H 03/16/23 18:36 VBG pO2 37 mmHg 03/16/23 18:36 VBG HCO3 51 mmol/L 03/16/23 18:36 VBG O2 Saturation < 60.0 % 03/16/23 18:36 VBG Base Excess 22.0 mEq/L 03/16/23 18:36 Sodium 139 mmol/L (136-145) 03/16/23 15:45 Potassium 3.8 mmol/L (3.5-5.1) 03/16/23 15:45 Chloride 95 mmol/L (98-107) L 03/16/23 15:45 Carbon Dioxide 41 mmol/L (21-32) H* 03/16/23 15:45 Anion Gap 3 (3-11) 03/16/23 15:45 BUN 14 mg/dl (6-23) 03/16/23 15:45 Creatinine 0.67 mg/dl (0.6-1.2) 03/16/23 15:45 Est Cr Clr Drug Dosing Not Reportable 03/16/23 15:45 Est GFR ( Amer) 108.4 ml/min 03/16/23 15:45 Est GFR (Non-Af Amer) 93.5 ml/min 03/16/23 15:45 BUN/Creatinine Ratio 20.9 (10-20) H 03/16/23 15:45 Glucose 91 mg/dl (70-99(Fasting)) 03/16/23 15:45 Calcium 9.0 mg/dl (8.6-10.3) 03/16/23 15:45 Total Bilirubin 0.3 mg/dl (0.2-1.0) 03/16/23 15:45 AST 26 U/L (13-39) 03/16/23 15:45 ALT 14 U/L (7-52) 03/16/23 15:45 Alkaline Phosphatase 92 U/L (34-104) 03/16/23 15:45 Total Protein 7.2 gm/dl (6.0-8.3) 03/16/23 15:45 Albumin 3.6 gm/dl (3.4-5.0) 03/16/23 15:45 Globulin 3.6 gm/dl (2.5-4.0) 03/16/23 15:45 Albumin/Globulin Ratio 1.0 (0.9-2) 03/16/23 15:[address] 03/16/23 16:21 CT facial bones w con CLINICAL HISTORY: L facial swelling/infection TECHNIQUE: Multidetector row helical CT of the maxillofacial bones was performed with administration of intravenous contrast, and processed with bone and soft tissue algorithms. Coronal and sagittal reformations were obtained. Automated dose lowering techniques and/or adjustment according to patient size were utilized for this exam. Comparison: None available at the time of this dictation. FINDINGS: There is a rim-enhancing subcutaneous fluid collection measuring 12 mm in the left buccal tissues with surrounding soft tissue stranding. There are enlarged left cervical and submandibular lymph nodes measuring up to 8 mm in diameter. Nasal bones are normal. The mandible is intact. The temporomandibular joints are anatomically aligned. Pterygoid plates are intact. Zygomatic arches are intact. The globes are normal and symmetric, without proptosis, obvious disruption or lens dislocation. There is no orbital radiopaque foreign body. The orbital salmon are intact. The retrobulbar fat is without evidence of disruption. Ex traocular muscles are normal and symmetric. Optic nerve sheath complexes are normal in course and caliber. Imaged portions of the paranasal sinuses and mastoid air cells are clear. IMPRESSION: Findings compatible with an abscess in the left buccal subcutaneous fat with reactive soft tissue stranding and lymphadenopathy. ACT 112: Negative or not required by law. Electronically signed by: Sreekanth Swanson M.D. 03/16/2023 6:17 PM Code Status & VTE Plan VTE Prophylaxis Plan VTE Prophylaxis will be ordered: Yes
[2023-03-16] MEDS ORDERED: POLYETHYLENE (MIRALAX) 17 GM PACK PO PRN (22:31)
[2023-03-16] MEDS ORDERED: NITROGLYCERIN SL 0.4 MG/TAB TAB SL PRN (22:31)
[2023-03-16] MEDS ORDERED: LORATADINE 10 MG TAB PO PRN (22:31)
[2023-03-16] MEDS ORDERED: ACETAMINOPHEN 325 MG TAB PO PRN (22:31)
[2023-03-16] MEDS: SODIUM CHLORIDE 0.9% 1,000 ML IV SCH (22:56)
[2023-03-17] MEDS: BUPRENORPHINE/NALOXONE 8/2 MG TAB SL SCH ×3 (00:08→20:26)
[2023-03-17] MEDS: NYSTATIN CR 15 GM TUBE EXT SCH ×3 (00:08→20:27)
[2023-03-17] MEDS: AMITRIPTYLINE HCL 25 MG TAB PO SCH ×2 (00:09→20:26)
[2023-03-17] MEDS: CLINDAMYCIN/D5W 600 MG/50 ML BAG IV SCH ×2 (00:09→07:42)
[2023-03-17] MEDS: METHOCARBAMOL 500 MG TABLET PO SCH ×3 (00:09→20:27)
[2023-03-17] MEDS: AMITRIPTYLINE HCL 10 MG TAB PO SCH ×2 (00:09→20:26)
--- NOTE | 2023-03-17 01:27 | Emergency Department Note ---
History of Present Illness General Chief complaint: Infection Stated complaint: CELLULITIS LEFT CHEEK Time Seen by Provider: 03/16/23 18:11 History of Present Illness Provider complaint: Left-sided facial swelling Onset (ago): week(s) 1 Location: face and left Maximum Pain Intensity: 9 Current Pain Intensity: 9 Quality: + aching and + dull 63-year-old female presents emergency department for left-sided facial swelling. Patient reports that approximate 1 week ago she scratched her face. She started noticing some swelling on Saturday and was prescribed Keflex by her PCP. She states the swelling and redness increases she went to her PCP yesterday and was given a shot of Rocephin. She states that the swelling and redness continues to increase symptoms referred to the emergency department today. No difficulty breathing. No difficulty swallowing. Patient reports her face is hurting her so much she cannot wear her CPAP at night. Home Medications Medication Instructions Recorded Confirmed Type amitriptyline 10 mg tablet 10 mg PO HS 03/04/23 03/16/23 History amitriptyline 25 mg tablet 25 mg PO HS 03/04/23 03/16/23 History buprenorphine 8 mg-naloxone 2 mg 1 film sublingual BID 03/04/23 03/16/23 History sublingual film cyanocobalamin (vitamin B-12) 1,000 mcg IM MONTHLY 03/04/23 03/16/23 History 1,000 mcg/mL injection solution donepezil 10 mg tablet 10 mg PO DAILY 03/04/23 03/16/23 History duloxetine 60 mg capsule,delayed 60 mg PO DAILY 03/04/23 03/16/23 History release folic acid 1 mg tablet 1 mg PO DAILY 03/04/23 03/16/23 History furosemide 20 mg tablet (Lasix) 20 mg PO DAILY 03/04/23 03/16/23 History levothyroxine 150 mcg tablet 150 mcg PO DAILY 03/04/23 03/16/23 History loratadine 10 mg tablet 10 mg PO DAILY PRN Allergy Symptoms 03/04/23 03/16/23 History methocarbamol 500 mg tablet 500 mg PO BID 03/04/23 03/16/23 History doxycycline hyclate 100 mg capsule 100 mg PO BID 03/16/23 03/16/23 History fluconazole 150 mg tablet 150 mg PO DAILY PRN other 03/16/23 03/16/23 History nystatin 100,000 unit/gram topical 1 applic topical BID 03/16/23 03/16/23 History powder pediatric multivit no.158-iron fum 1 tab PO DAILY 03/16/23 03/16/23 History 18 mg-vit K1 10 mcg chewable tablet (Cerovite Jr) Allergies Allergy/AdvReac Type Severity Reaction Status Date / Time Penicillins Allergy Mild Verified 08/19/09 03:46 monosodium glutamate Allergy Verified 03/06/23 12:53 Past Med/Surg History Medical History Chronic respiratory failure Hypothyroidism Hypoventilation associated with obesity syndrome Moderate dementia with behavioral disturbance Morbid obesity BEV on CPAP Postgastric surgery syndrome Psoriatic arthritis Surgical History (Reviewed 03/17/23 @ :23 by Eze Griggs MD) H/O breast biopsy H/O gastric sleeve Hx of cholecystectomy Family History Other Alzheimer disease Breast cancer Hypertension Social History Smoking Status: Never smoker Second Hand Exposure: No; Do You Dip or Chew Tobacco: No; Tobacco Cessation Education Requested by Patient: No Hx Alcohol Use: No Hx Substance Use: No Preferred Language: Yoruba Communication Ability: Effective Top Lift Cutter Required: No Beliefs That Will Affect Care: None Current Living Situation: Spouse Other Information That Helps Us Care for You: No Feels Safe at Home: Yes Safety Concerns: Feels Safe At This Time Assistive Devices: CPAP, Glasses and Oxygen - Continuous Physical Exam Vital Signs Vital Signs - 24 hr 03/16/23 15:26 03/16/23 18:13 03/16/23 18:37 Temperature 36.6 C 36.7 C Temperature Source Temporal Artery Scan Oral Pulse Rate 66 60 Pulse Rate [Apical] 64 Pulse Rate from SpO2 Sensor Pulse Rhythm [Apical] Regular Pulse Strength [Apical] Normal Respiratory Rate 20 20 Respiratory Effort / Characteristics Non-Labored Non-Labored Spontaneous Respiratory Depth Normal Normal Respiratory Pattern Regular Blood Pressure 136/75 Blood Pressure [Right Arm] 128/64 Blood Pressure Mean 95 Blood Pressure Mean [Right Arm] 85 Blood Pressure Position [Right Arm] Semi-fowlers Pulse Oximetry 95 99 Oxygen Delivery Method Nasal Cannula Nasal Cannula Oxygen Flow Rate 1 1 Sepsis Recent Fever Within 48 Hours No Sepsis New/Unexplained Change in Mental Status N/A Sepsis Action Taken by Nursing No Action Required 03/16/23 20:22 03/16/23 18:36 03/16/23 19:00 Temperature Temperature Source Pulse Rate 58 L 60 Pulse Rate [Apical] 57 L Pulse Rate from SpO2 Sensor 57 L 60 Pulse Rhythm [Apical] Regular Pulse Strength [Apical] Normal Respiratory Rate 22 14 14 Respiratory Effort / Characteristics Non-Labored Respiratory Depth Normal Respiratory Pattern Regular Blood Pressure Blood Pressure [Right Arm] 106/45 L Blood Pressure Mean Blood Pressure Mean [Right Arm] 65 Blood Pressure Position [Right Arm] Pulse Oximetry 93 100 98 Oxygen Delivery Method Nasal Cannula Oxygen Flow Rate 1 Sepsis Recent Fever Within 48 Hours Sepsis New/Unexplained Change in Mental Status Sepsis Action Taken by Nursing 03/16/23 19:13 03/16/23 19:30 03/16/23 20:14 Temperature Temperature Source Pulse Rate 58 L 57 L 57 L Pulse Rate [Apical] Pulse Rate from SpO2 Sensor 56 L 57 L 57 L Pulse Rhythm [Apical] Pulse Strength [Apical] Respiratory Rate 17 14 21 Respiratory Effort / Characteristics Respiratory Depth Respiratory Pattern Blood Pressure 119/68 106/45 L Blood Pressure [Right Arm] Blood Pressure Mean 85 65 Blood Pressure Mean [Right Arm] Blood Pressure Position [Right Arm] Pulse Oximetry 98 97 97 Oxygen Delivery Method Nasal Cannula Nasal Cannula Oxygen Flow Rate 1 1 Sepsis Recent Fever Within 48 Hours Sepsis New/Unexplained Change in Mental Status Sepsis Action Taken by Nursing Physical Exam GENERAL: She is oriented to person, place, and time. She appears well-developed and well-nourished. She does not appear distressed. HENT: Exam performed. -Head: Normocephalic and atraumatic. Left-sided facial edema and erythema extending from the cheek down below the chin. -Right Ear: External ear normal. No mastoid erythema -Left Ear: External ear normal. No mastoid erythema -Mouth/Throat: The oropharynx is clear and moist. No trismus in the jaw. No dental abscesses or uvula swelling. No oropharyngeal exudate or tonsillar abscesses. No tongue elevation EYES: Conjunctivae and EOM are normal. Pupils are equal, round, and reactive to light. Right eye exhibits no discharge. Left eye exhibits no discharge. No scleral icterus. NECK: Normal range of motion. Neck supple. No JVD present. No spinous process tenderness present. No carotid bruit present. No rigidity. No tracheal deviation and normal range of motion present. No Brudzinski's sign and no Kernig's sign noted. CV: Normal rate, regular rhythm, normal heart sounds and intact distal pulses. There is no peripheral edema. Palpable radial pulses bue. PULM/CHEST: Effort normal and breath sounds normal. No respiratory distress. No stridor. She has no wheezes. She has no rales. NEURO: She is alert and oriented to person, place, and time. She has normal strength. No cranial nerve deficit or sensory deficit. Coordination and gait normal. GCS eye subscore is 4. GCS verbal subscore is 5. GCS motor subscore is 6. Cerebellar tests wnl. Course Course 1810: The patient was evaluated in room A9. A complete history and physical exam was performed Cardiac monitoring: An order was placed for continuous cardiac monitoring. The monitor shows a rate of 70 with sinus rhythm interpreted by nm 1828: Vital signs stable. Labs within normal limits. Imaging shows the left buccal subcutaneous fat abscess was tissue surrounding and lymphadenopathy. P atient has failed outpatient oral antibiotics. Patient will be treated with clindamycin. Discussed case with Dr. Dos Santos on-call [facility] who states to admit admit to medicine and he can evaluate the patient in the morning. Patient will be admitted to [facility] hospitalist Dr. Ferro Administered Medications Amitriptyline HCl (Amitriptyline Hcl 25 Mg Tab) 25 mg PO HS [facility] Stop: 04/15/23 22:30 Last Admin: 03/17/23 00:09 Dose: 25 mg Documented By: ALESSANDRO Amitriptyline HCl (Amitriptyline Hcl 10 Mg Tab) 10 mg PO HS [facility] Stop: 04/15/23 22:30 Last Admin: 03/17/23 00:09 Dose: 10 mg Documented By: ALESSANDRO Buprenorphine/Naloxone (Buprenorphine/Naloxone 8/2 Mg Tab) 1 tab SL BID [facility] Stop: 04/15/23 22:30 Last Admin: 03/17/23 00:08 Dose: 1 tab Documented By: ALESSANDRO Sodium Chloride (Nss 1000ml) 1,000 mls @ 75 mls/hr IV .[id number] [facility] Stop: 04/15/23 22:30 Last Admin: 03/16/23 22:56 Dose: 75 mls/hr Documented By: ALESSANDRO Clindamycin Phosphate (Cleocin/D5w) 600 mg in 50 mls @ 100 mls/hr IV Q8H [facility] Stop: 03/24/23 00:00 Last Admin: 03/17/23 00:09 Dose: 100 mls/hr Documented By: ALESSANDRO Methocarbamol (Methocarbamol 500 Mg Tablet) 500 mg PO BID [facility] Stop: 04/15/23 22:30 Last Admin: 03/17/23 00:09 Dose: 500 mg Documented By: ALESSANDRO Nystatin (Nystatin Cr 15 Gm Tube) 1 appln EXT BID [facility] Stop: 04/15/23 22:30 Last Admin: 03/17/23 00:08 Dose: 1 appln Documented By: ALESSANDRO Discontinued Medications Acetaminophen (Acetaminophen 325 Mg Tab) 650 mg PO NOW STA Stop: 03/16/23 15:52 Last Admin: 03/16/23 15:58 Dose: 650 mg Documented By: ALON Hydromorphone HCl (Hydromorphone Inj 0.5 Mg/0.5 Ml Syr) 0.25 mg IV NOW STA Stop: 03/16/23 20:29 Last Admin: 03/16/23 21:17 Dose: 0.25 mg Documented By: OLEGARIO Clindamycin Phosphate (Cleocin/D5w) 300 mg in 50 mls @ 100 mls/hr IV NOW ONE Stop: 03/16/23 18:51 Last Infusion: 03/16/23 19:28 Dose: 0 mls/hr Documented By: Admin: 03/16/23 19:02 Dose: 100 mls/hr Documented By: DANTE Ioversol (Optiray 320 100ml) 90 ml IV ONCE ONE Stop: 03/16/23 17:39 Last Admin: 03/16/23 17:38 Dose: 90 ml Documented By: EMILIA Morphine Sulfate (Morphine Sulfate 2 Mg/Ml Carp) 2 mg IV NOW STA Stop: 03/16/23 19:09 Last Admin: 03/16/23 19:12 Dose: 2 mg Documented By: DANTE Medical Decision Making Laboratory Data Attestation: I reviewed the patient's lab results. 03/16/23 15:45 03/16/23 15:45 Lab Results 03/16/23 03/16/23 03/16/23 Range/Units 15:45 15:45 18:36 WBC 10.40 (4.8-10.8) K/ul RBC 4.21 (4.20-5.40) M/uL Hgb 11.1 L (12.0-16.0) g/dl Hct 37.2 (37.0-47.0) % MCV 88.4 (80.0-100.0) fL MCH 26.4 (25.0-34.0) pg MCHC 29.8 L (32.0-36.0) g/dL RDW Std Deviation 43.8 (36.4-46.3) fL RDW Coeff of Jaron 13.7 (11.5-14.5) % Plt Count 306 (130-400) K/uL MPV 9.9 (9.4-12.4) fL Immature Gran % (Auto) 0.5 % Neut % (Auto) 64.9 % Lymph % (Auto) 22.4 % [place] % (Auto) 6.7 % Eos % (Auto) 5.0 % Baso % (Auto) 0.5 % Neut # (Auto) 6.75 H (1.40-6.50) K/uL Lymph # (Auto) 2.33 (1.20-3.40) K/uL [place] # (Auto) 0.70 H (0.11-0.59) K/uL Eos # (Auto) 0.52 H (0.00-0.50) K/uL Baso # (Auto) 0.05 (0.00-0.20) K/uL Immature Gran # (Auto) 0.05 (0.01-0.20) K/uL VBG pH 7.43 H (7.36-7.41) VBG pCO2 77 H (38-50) mmHg VBG pO2 37 mmHg VBG HCO3 51 mmol/L VBG O2 Saturation < 60.0 % VBG Base Excess 22.0 mEq/L Sodium 139 (136-145) mmol/L Potassium 3.8 (3.5-5.1) mmol/L Chloride 95 L (98-107) mmol/L Carbon Dioxide 41 H* (21-32) mmol/L Anion Gap 3 (3-11) BUN 14 (6-23) mg/dl Creatinine 0.67 (0.6-1.2) mg/dl Est Cr Clr Drug Dosing Not Reportable Est GFR ( Amer) 108.4 ml/min Est GFR (Non-Af Amer) 93.5 ml/min BUN/Creatinine Ratio 20.9 H (10-20) Glucose 91 (70-99(Fasting)) mg/dl Calcium 9.0 (8.6-10.3) mg/dl Total Bilirubin 0.3 (0.2-1.0) mg/dl AST 26 (13-39) U/L ALT 14 (7-52) U/L Alkaline Phosphatase 92 (34-104) U/L Total Protein 7.2 (6.0-8.3) gm/dl Albumin 3.6 (3.4-5.0) gm/dl Globulin 3.6 (2.5-4.0) gm/dl Albumin/Globulin Ratio 1.0 (0.9-2) Imaging Data Radiologist's Impression: Face CT 03/16/23 16:21 CT facial bones w con CLINICAL HISTORY: L facial swelling/infection TECHNIQUE: Multidetector row helical CT of the maxillofacial bones was performed with administration of intravenous contrast, and processed with bone and soft tissue algorithms. Coronal and sagittal reformations were obtained. Automated dose lowering techniques and/or adjustment according to patient size were utilized for this exam. Comparison: None available at the time of this dictation. FINDINGS: There is a rim-enhancing subcutaneous fluid collection measuring 12 mm in the left buccal tissues with surrounding soft tissue stranding. There are enlarged left cervical and submandibular lymph nodes measuring up to 8 mm in diameter. Nasal bones are normal. The mandible is intact. The temporomandibular joints are anatomically aligned. Pterygoid plates are intact. Zygomatic arches are intact. The globes are normal and symmetric, without proptosis, obvious disruption or lens dislocation. There is no orbital radiopaque foreign body. The orbital salmon are intact. The retrobulbar fat is without evidence of disruption. Extraocular muscles are normal and symmetric. Optic nerve sheath complexes are normal in course and caliber. Imaged portions of the paranasal sinuses and mastoid air cells are clear. IMPRESSION: Findings compatible with an abscess in the left buccal subcutaneous fat with reactive soft tissue stranding and lymphadenopathy. ACT 112: Negative or not required by law. Electronically signed by: Sreekanth Swanson M.D. 03/16/2023 6:17 PM MDM Narrative 1811: The patient was evaluated in room A9. A complete history and physical exam was performed Cardiac monitoring: An order was placed for continuous cardiac monitoring. The monitor shows a rate of 70 with sinus rhythm interpreted by me 1828: Vital signs stable. Labs within normal limits. Imaging shows the left buccal subcutaneous fat abscess was tissue surrounding and lymphadenopathy. Patient has failed outpatient oral antibiotics. Patient will be treated with clindamycin. Discussed case with Dr. Dos Santos on-call [facility] who states to admit admit to medicine and he can evaluate the patient in the morning. [facility] Imp[facility] & Plan Abscess, cheek Discharge Plan Visit Data Chief Complaint: Infection Stated Complaint: CELLULITIS LEFT CHEEK ED Provider: Eze Griggs Discharge Problem: Abscess, cheek Patient Disposition: Admitted As Inpatient Discharge Instructions Interventions: ED Discharge Assessment Last Done: 03/16/23 22:00
[2023-03-17] MEDS: HYDROmorphone INJ 0.5 MG/0.5 ML SYR IV PRN ×2 (05:31→14:20)
[2023-03-17] MEDS: LEVOTHYROXINE SODIUM 150 MCG TABLET PO SCH (05:32)
[2023-03-17 07:14] LABS: BUN Creatinine Ratio 18.8 (10-20); Calcium 8.3 mg/dl (8.6-10.3); Creatinine Clr Calc Pharmacy 99.3 ml/min; Est GFR (African American) 110.1 ml/min; Magnesium 2.3 mg/dl (1.7-2.4); Potassium 3.8 mmol/L (3.5-5.1)
[2023-03-17] MEDS: DONEPEZIL HCL 10 MG TAB PO SCH (07:31)
[2023-03-17] MEDS: MULTIVITAMIN CHEWABLE TAB PO SCH (07:31)
[2023-03-17] MEDS: DULoxetine HCL 60 MG CAP PO SCH (07:31)
[2023-03-17] MEDS: FOLIC ACID 1 MG TAB PO SCH (07:31)
[2023-03-17] MEDS: FUROSEMIDE 20 MG TAB PO SCH (07:31)
[2023-03-17 07:46] LABS: Basophils # (auto) 0.05 K/uL (0.00-0.20); Basophils % (auto) 0.5 %; Eosinophils # (auto) 0.63 K/uL (0.00-0.50); Eosinophils % (auto) 6.4 %; Hematocrit (blood only) 36.3 % (37.0-47.0); Hemoglobin 10.5 g/dl (12.0-16.0); Immature Granulocytes # (auto) 0.07 K/uL (0.01-0.20); Immature Granulocytes % (auto) 0.7 %; Lymphocytes # (auto) 2.38 K/uL (1.20-3.40); Lymphocytes % (auto) 24.3 %; Mean Corpuscular Hemoglobin 26.2 pg (25.0-34.0); Mean Corpuscular Hgb Conc 28.9 g/dL (32.0-36.0); Mean Corpuscular Volume 90.5 fL (80.0-100.0); Mean Platelet Volume 9.7 fL (9.4-12.4); Monocytes # (auto) 0.67 K/uL (0.11-0.59); Monocytes % (auto) 6.9 %; Neutrophils # (auto) 5.98 K/uL (1.40-6.50); Neutrophils % (auto) 61.2 %; Platelet Count 290 K/uL (130-400); Polychromasia 1+; RDW Coefficient of Variation 13.7 % (11.5-14.5); RDW Standard Deviation 44.4 fL (36.4-46.3); Red Blood Count 4.01 M/uL (4.20-5.40); White Blood Count 9.78 K/ul (4.8-10.8)
[2023-03-17] MEDS ORDERED: VANCOMYCIN HCL 2,250 MG in SODIUM CHLORIDE 0.9% 500 ML IV ONE (09:43)
[2023-03-17] MEDS ORDERED: VANCOMYCIN CONSULT ACTIVE PRN (09:43)
--- NOTE | 2023-03-17 10:34 | Oral/Maxillofacial Consult ---
Date of Consultation March 17, 2023 Assessment & Plan (1) Abscess, cheek: (2) Cellulitis and abscess of face: History of Present Illness Attending Physician: Gibson Salamanca MD History of Present Illness 63-year-old female presents emergency department for left-sided facial swelling. Patient reports that approximate 1 week ago she scratched her face. She started noticing some swelling on Saturday and was prescribed Keflex by her PCP. She states the swelling and redness increases she went to her PCP yesterday and was given a shot of Rocephin. She states that the swelling and redness continues to increase symptoms referred to the emergency department today. 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 Today comes back with left facial cellulitis and abscess. Patient states she scratched her face and she noticed some swelling last Saturday. Saw PCP for follow-up appointment posthospital discharge and was prescribed doxycycline for facial infection and a dose of Rocephin was given but infection was worsening and today it extended to the neck region and having lot of pain and was advised to come to the ER. Denies any fever. Denies any shortness of breath. No difficulty swallowing. She had some chest pain earlier but no chest pain now. Currently no cough. Has some headaches. No blurred visions. No earache or runny nose. No nausea. No abdominal pain. Normal bowel and bladder movements Acute fluctuant left facial infection looks to be a possible infected dermoid cyst. I&D needed LIANA I discussed the procedure I reviewed the treatment plan and consent with the patient and her . Understanding was expressed. Time was given for questions regarding the surgery, risks and post op care. Discussed alternative to treatment--procedure as planned, Do not do surgery I&D needed today Risks discussed: Bleeding,Pain,swelling,infection,delayed healing, nerve injury to face,lips,tongue,chin area which could be permanent (rare), jaw stiffness, Plan I&D now Consent signed For OR this AM Allergies Allergy/AdvReac Type Severity Reaction Status Date / Time Penicillins Allergy Mild Verified 08/19/09 03:46 monosodium glutamate Allergy Verified 03/06/23 12:53 Home Medications Medication Instructions Recorded Confirmed Type amitriptyline 10 mg tablet 10 mg PO HS 03/04/23 03/16/23 History amitriptyline 25 mg tablet 25 mg PO HS 03/04/23 03/16/23 History buprenorphine 8 mg-naloxone 2 mg 1 film sublingual BID 03/04/23 03/16/23 History sublingual film cyanocobalamin (vitamin B-12) 1,000 mcg IM MONTHLY 03/04/23 03/16/23 History 1,000 mcg/mL injection solution donepezil 10 mg tablet 10 mg PO DAILY 03/04/23 03/16/23 History duloxetine 60 mg capsule,delayed 60 mg PO DAILY 03/04/23 03/16/23 History release folic acid 1 mg tablet 1 mg PO DAILY 03/04/23 03/16/23 History furosemide 20 mg tablet (Lasix) 20 mg PO DAILY 03/04/23 03/16/23 History levothyroxine 150 mcg tablet 150 mcg PO DAILY 03/04/23 03/16/23 History loratadine 10 mg tablet 10 mg PO DAILY PRN Allergy Symptoms 03/04/23 03/16/23 History methocarbamol 500 mg tablet 500 mg PO BID 03/04/23 03/16/23 History doxycycline hyclate 100 mg capsule 100 mg PO BID 03/16/23 03/16/23 History fluconazole 150 mg tablet 150 mg PO DAILY PRN other 03/16/23 03/16/23 History nystatin 100,000 unit/gram topical 1 applic topical BID 03/16/23 03/16/23 History powder pediatric multivit no.158-iron fum 1 tab PO DAILY 03/16/23 03/16/23 History 18 mg-vit K1 10 mcg chewable tablet (Cerovite Jr) Patient History Medical History Chronic respiratory failure Hypothyroidism Hypoventilation associated with obesity syndrome Moderate dementia with behavioral disturbance Morbid obesity BEV on CPAP Postgastric surgery syndrome Psoriatic arthritis Surgical History H/O breast biopsy H/O gastric sleeve Hx of cholecystectomy Family History Other Alzheimer disease Breast cancer Hypertension Social History Smoking Status: Never smoker Second Hand Exposure: No; Do You Dip or Chew Tobacco: No; Tobacco Cessation Education Requested by Patient: No Hx Alcohol Use: No Hx Substance Use: No Preferred Language: Danish Communication Ability: Effective Recreation Activities Coordinator Required: No Beliefs That Will Affect Care: None Current Living Situation: Spouse Other Information That Helps Us Care for You: No Feels Safe at Home: Yes Safety Concerns: Feels Safe At This Time Assistive Devices: CPAP, Glasses and Oxygen - Continuous Results & Data Vital Signs (Past 12 Hours) Vital Signs Temp Pulse Pulse Resp BP Pulse Ox O2 Del Method 03/17/23 08:32 36.8 C 63 18 150/81 H 91 Room Air 03/17/23 07:46 Room Air 03/17/23 07:00 55 L 03/17/23 03:19 36.6 C 62 18 135/71 92 Room Air 03/17/23 00:31 73 03/16/23 23:03 78 15 93 03/16/23 23:23 Nasal Cannula, CPAP 03/16/23 23:23 36.7 C 56 L 20 143/84 H 97 Nasal Cannula O2 Flow Rate 03/17/23 08:32 03/17/23 07:46 03/17/23 07:00 03/17/23 03:19 03/17/23 00:31 03/16/23 23:03 3 03/16/23 23:23 1 03/16/23 23:23 1 PG Care Time/CCT Total # of Minutes Spent Total Time Spent with Patient: Total time spent is greater than 50% in coordination of care (as documented) at patient's floor/unit and/or counseling patient: Coding Level of Care Code 38767 IN/OBS CONSULT LVL 2,35M Diagnoses Abscess, cheek L02.01 Cellulitis and abscess of face L03.211; L02.01
[2023-03-17] MEDS ORDERED: ePHEDrine sulfate 50 MG/ML AMP IV PRN (10:35)
[2023-03-17] MEDS ORDERED: ONDANSETRON INJ 2 MG/ML 2 ML VIAL IV PRN (10:35)
[2023-03-17] MEDS ORDERED: ATROPINE SULFATE 0.1 MG/ML 10ML SYR IV PRN (10:35)
[2023-03-17] MEDS ORDERED: PROPOFOL IV EMULSION 10 MG/ML 20 ML VIAL IV ONE (10:37)
[2023-03-17] MEDS ORDERED: LIDOCAINE 2% 2 ML VIAL/AMP(20MG/ML) INFIL ONE (10:37)
[2023-03-17] MEDS ORDERED: DEXAMETHASONE SOD INJ 4 MG/ML VIAL ONE (10:37)
[2023-03-17] MEDS ORDERED: ONDANSETRON INJ 2 MG/ML 2 ML VIAL ONE (10:37)
[2023-03-17] MEDS ORDERED: fentaNYL citrate PF 100 MCG/2 ML VIAL ONE ×3 (10:38→11:59)
[2023-03-17] MEDS ORDERED: MIDAZOLAM HCL 1 MG/ML 2ML VIAL ONE (10:38)
[2023-03-17] MEDS ORDERED: ROCURONIUM BROMIDE 10 MG/ML 5 ML VIAL IV ONE (10:43)
[2023-03-17] MEDS ORDERED: KETAMINE 50 MG/5 ML SYRINGE ONE (10:43)
--- NOTE | 2023-03-17 10:49 | Anesthesiology Consultation ---
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 History Surgery Operation Date: 03/17/23 10:30 Proposed Procedures p Incision and Drainage General - Yan Dos Santos DMD Height/Weight Height: 5 ft Weight: 106.5 kg Allergies Allergy/AdvReac Type Severity Reaction Status Date / Time Penicillins Allergy Mild Verified 08/19/09 03:46 monosodium glutamate Allergy Verified 03/06/23 12:53 Medications Home Medications Medication Instructions Recorded Confirmed Last Taken amitriptyline 10 mg tablet 10 mg PO HS 03/04/23 03/16/23 Unknown amitriptyline 25 mg tablet 25 mg PO HS 03/04/23 03/16/23 Unknown buprenorphine 8 mg-naloxone 2 mg 1 film sublingual BID 03/04/23 03/16/23 03/16/23 sublingual film cyanocobalamin (vitamin B-12) 1,000 mcg IM MONTHLY 03/04/23 03/16/23 02/26/23 1,000 mcg/mL injection solution donepezil 10 mg tablet 10 mg PO DAILY 03/04/23 03/16/23 03/16/23 duloxetine 60 mg capsule,delayed 60 mg PO DAILY 03/04/23 03/16/23 03/16/23 release folic acid 1 mg tablet 1 mg PO DAILY 03/04/23 03/16/23 03/16/23 furosemide 20 mg tablet (Lasix) 20 mg PO DAILY 03/04/23 03/16/23 03/16/23 levothyroxine 150 mcg tablet 150 mcg PO DAILY 03/04/23 03/16/23 03/16/23 loratadine 10 mg tablet 10 mg PO DAILY PRN Allergy Symptoms 03/04/23 03/16/23 Unknown methocarbamol 500 mg tablet 500 mg PO BID 03/04/23 03/16/23 Unknown doxycycline hyclate 100 mg capsule 100 mg PO BID 03/16/23 03/16/23 03/16/23 fluconazole 150 mg tablet 150 mg PO DAILY PRN other 03/16/23 03/16/23 Unknown nystatin 100,000 unit/gram topical 1 applic topical BID 03/16/23 03/16/23 03/16/23 powder pediatric multivit no.158-iron fum 1 tab PO DAILY 03/16/23 03/16/23 03/16/23 18 mg-vit K1 10 mcg chewable tablet ([email or web address]) Active Medications Generic Name Dose Route Start Last Admin Trade Name Freq PRN Reason Stop Dose Admin Acetaminophen 650 mg 03/16/23 22:31 03/17/23 07:29 Acetaminophen 325 Mg Tab PO 04/15/23 22:30 650 mg Q4H PRN Administration Pain or Fever Amitriptyline HCl 25 mg 03/16/23 22:31 03/17/23 00:09 Amitriptyline Hcl 25 Mg Tab PO 04/15/23 22:30 25 mg HS CHAPO Administration Amitriptyline HCl 10 mg 03/16/23 22:31 03/17/23 00:09 Amitriptyline Hcl 10 Mg Tab PO 04/15/23 22:30 10 mg HS CHAPO Administration Buprenorphine/Naloxone 1 tab 03/16/23 22:31 03/17/23 07:36 Buprenorphine/Naloxone 8/2 Mg Tab SL 04/15/23 22:30 1 tab BID CHAPO Administration Donepezil HCl 10 mg 03/17/23 09:00 03/17/23 07:31 Donepezil Hcl 10 Mg Tab PO 04/16/23 08:59 10 mg DAILY CHAPO Administration Duloxetine HCl 60 mg 03/17/23 09:00 03/17/23 07:31 Duloxetine Hcl 60 Mg Cap PO 04/16/23 08:59 60 mg DAILY CHAPO Administration Folic Acid 1 mg 03/17/23 09:00 03/17/23 07:31 Folic Acid 1 Mg Tab PO 04/16/23 08:59 1 mg DAILY CHAPO Administration Furosemide 20 mg 03/17/23 09:00 03/17/23 07:31 Furosemide 20 Mg Tab PO 04/16/23 08:59 20 mg DAILY CHAPO Administration Hydromorphone HCl 0.25 mg 03/16/23 22:31 03/17/23 05:31 Hydromorphone Inj 0.5 Mg/0.5 Ml Syr IV 03/30/23 22:30 0.25 mg Q6H PRN Administration Pain Sodium Chloride 1,000 mls @ 75 mls/hr 03/16/23 22:31 03/16/23 22:56 Nss 1000ml IV 04/15/23 22:30 75 mls/hr .[id number] CHAPO Administration Levothyroxine Sodium 150 mcg 03/17/23 06:30 03/17/23 05:32 Levothyroxine Sodium 150 Mcg Tablet PO 04/16/23 06:29 150 mcg DAILYBB CHAPO Administration Methocarbamol 500 mg 03/16/23 22:31 03/17/23 07:30 Methocarbamol 500 Mg Tablet PO 04/15/23 22:30 500 mg BID CHAPO Administration Multivitamins/Folic Acid/Vitamin C 1 tab 03/17/23 09:00 03/17/23 07:31 Multivitamin Chewable Tab PO 04/16/23 08:59 1 tab DAILY CHAPO Administration Nystatin 1 appln 03/16/23 22:31 03/17/23 07:31 Nystatin Cr 15 Gm Tube EXT 04/15/23 22:30 1 appln BID CHAPO Administration Past Medical History Medical History Chronic respiratory failure Hypothyroidism Hypoventilation associated with obesity syndrome Moderate dementia with behavioral disturbance Morbid obesity BEV on CPAP Postgastric surgery syndrome Psoriatic arthritis Past Family History Family History Other Alzheimer disease Breast cancer Hypertension Past Surgical History Surgical History H/O breast biopsy H/O gastric sleeve Hx of cholecystectomy Social History Smoking Status: Never smoker Do You Dip or Chew Tobacco: No Hx Alcohol Use: No Hx Substance Use: No substance use type: does not use Physical Exam Vital Signs Last Vital Signs Temp 98.2 F 03/17/23 08:32 Pulse 63 03/17/23 08:32 Resp 18 03/17/23 08:32 BP 150/81 H 03/17/23 08:32 Pulse Ox 91 03/17/23 08:32 O2 Del Method Room Air 03/17/23 08:32 O2 Flow Rate 1 03/16/23 23:23 Testing Laboratory Results 03/17/23 06:34 03/17/23 06:34 Chest X-Ray Date: 03/04/23 IMPRESSION: 1. Cardiomegaly without acute process. 2. Hiatal hernia. Echocardiogram Date: 02/26/23 LV systolic function is normal No regional wall motion abnormalities noted EF 55-60% No significant valvular pathology No prior study for comparison
[2023-03-17] MEDS: fentaNYL citrate PF 100 MCG/2 ML VIAL IV PRN ×4 (11:53→12:08)
[2023-03-17] MEDS ORDERED: HYDROmorphone INJ 0.5 MG/0.5 ML SYR ONE (12:12)
[2023-03-17] MEDS: HYDROmorphone INJ 0.5 MG/0.5 ML SYR IV STA ×2 (12:13→12:18)
[2023-03-17] MEDS ORDERED: LIDOCAINE 1%/EPINEPHRINE 1:100,000 20 ML VIAL ONE (12:16)
--- NOTE | 2023-03-17 12:32 | Anesthesiology Progress Note ---
Date of Service March 17, 2023 Anesthesia Post Procedure Vital Signs Vital Signs: Temp Pulse Pulse Pulse Resp BP BP 03/17/23 12:25 97.5 F L 74 16 157/64 H 03/17/23 12:15 77 14 172/81 H 03/17/23 12:05 71 16 185/76 H 03/17/23 11:55 76 18 174/85 H 03/17/23 11:49 97.2 F L 78 18 188/99 H 03/17/23 08:32 98.2 F 63 18 150/81 H 03/17/23 07:46 03/17/23 07:00 55 L 03/17/23 03:19 97.9 F 62 18 135/71 03/17/23 00:31 73 03/16/23 23:03 78 15 03/16/23 23:23 03/16/23 23:23 98.1 F 56 L 20 143/84 H 03/16/23 22:22 98.1 F 56 L 20 143/84 H 03/16/23 21:30 66 15 03/16/23 21:00 58 L 14 119/67 03/16/23 20:14 57 L 21 106/45 L 03/16/23 19:30 57 L 14 119/68 03/16/23 19:13 58 L 17 03/16/23 19:00 60 14 03/16/23 18:36 58 L 14 03/16/23 22:00 03/16/23 20:22 57 L 22 106/45 L 03/16/23 18:37 60 03/16/23 18:13 98.1 F 64 20 128/64 03/16/23 15:26 97.9 F 66 20 136/75 Pulse Ox O2 Del Method O2 Flow Rate 03/17/23 12:25 95 Nasal Cannula 3 03/17/23 12:15 95 Nasal Cannula 3 03/17/23 12:05 98 Nasal Cannula 3 03/17/23 11:55 93 Nasal Cannula 3 03/17/23 11:49 95 Nasal Cannula 3 03/17/23 08:32 91 Room Air 03/17/23 07:46 Room Air 03/17/23 07:00 03/17/23 03:19 92 Room Air 03/17/23 00:31 03/16/23 23:03 93 3 03/16/23 23:23 Nasal Cannula, CPAP 1 03/16/23 23:23 97 Nasal Cannula 1 03/16/23 22:22 97 Nasal Cannula, CPAP 1 03/16/23 21:30 97 03/16/23 21:00 94 Nasal Cannula 1 03/16/23 20:14 97 Nasal Cannula 1 03/16/23 19:30 97 Nasal Cannula 1 03/16/23 19:13 98 03/16/23 19:00 98 03/16/23 18:36 100 03/16/23 22:00 Nasal Cannula 1 03/16/23 20:22 93 Nasal Cannula 1 03/16/23 18:37 03/16/23 18:13 99 Nasal Cannula 1 03/16/23 15:26 95 Nasal Cannula 1 Pain Intensity Left Face: Pain Intensity: 4 Transfer of Care Handoff Completed per policy Notes Mental Status: alert / awake / arousable and participated in evaluation Patient Amnestic to Procedure: Yes Nausea / Vomiting: adequately controlled Pain: adequately controlled Airway Patency, RR, SpO2: stable & adequate BP & HR: stable & adequate Hydration State: stable & adequate Anesthetic Complications: no major complications apparent and Pt Satisfied with anesthetic care
[2023-03-17] MEDS: SODIUM CHLORIDE 0.9% 1,000 ML IV SCH (12:52)
[2023-03-17] MEDS: DAPTOmycin 300 MG in SYRINGE 0 ML IV SCH (12:53)
--- NOTE | 2023-03-17 13:20 | Hospitalist Progress Note ---
Date of Service March 17, 2023 Assessment & Plan (1) Cellulitis and abscess of face: Plan: 62yo F with a PMH of hypersomnia with sleep apnea newly on CPAP, chronic hypoxic respiratory failure currently on 1L NC O2 as per patient, moderate dementia with mood disturbance, morbid obesity with hypoventilation, history of medication noncompliance, hypothyroidism, dyslipidemia, post gastric surgery syndrome, psoriatic arthritis, h/o juvenile arthritis with chronic pain syndrome, myoclonic jerking, sensorineural hearing loss bilateral, depression, history of kidney stones, was recently in the hospital for acute acute on chronic respiratory with hypoxia hypercarbia, obstructive apnea treated with BiPAP and acetazolamide discharged home comes back with left facial cellulitis and abscess Left facial cellulitis and abscess Patient reports that she had a scab which she scratched which led to development of cellulitis and subsequent abscess. Failed outpatient treatment with doxycycline and Rocephin CT face personally reviewed; rim-enhancing subcutaneous fluid collection measuring 12 mm left buccal tissue. Status post I&D by oral surgery on 03/17/2023. Continue on daptomycin. Plan to transition to oral after improvement on IV antibiotics. chronic respiratory failure with hypoxia and hypercapnia Hypoventilation associated with obesity Severe BEV on CPAP Currently on oxygen 1 L / as per patient Will monitor History of myoclonic jerking currently on methocarbamol, amitriptyline We will monitor Intertrigo of genitocrural region due to [place] species On nystatin We will monitor BLE edema Recent 2D echo with preserved EF, On Lasix 20 mg daily We will monitor Moderate dementia with behavioral disturbance Follows with [facility], Dr. Sands We will monitor H/o scoliosis with chronic pain syndrome History of spinal injections in the past, currently on methocarbamol, buprenorphine-naloxone Hypothyroidism On levothyroxine Post gastric surgery syndrome To continue B12, Folate and Vit D supplementation DVT prophylaxis SCDs for now Disposition med/telemetry Full code Time spent evaluating patient, direct bedside care, chart review, placing orders, interpretation of diagnostic studies, discussion with consultants, patient, and family members, as well as other required patient management activities is 60 minutes. Please note the above document was generated using voice recognition software. It may contain grammatical, syntax or spelling errors. Any formal questions or concerns about the content, text or information contained within the body of this dictation should be directly addressed to the provider for clarification Admission and Anticipated Discharge Date Admission Date: March 16, 2023 Subjective Patient seen and examined at bedside. She reports pain on her left cheek. Able to talk; no stridor. N.p.o. from midnight for possible procedure. Review of Systems Review of Systems: All systems reviewed & are unremarkable except as noted in Subjective Physical Exam Physical Exam: Constitutional: Alert orient x3; morbidly obese. Head: Swelling on left cheek with surrounding erythema and swelling. Induration present. Respiratory: normal respiratory effort, lungs clear to auscultation, no wheeze, rales, rhonchi. Normal insp/exp effort, no accessory muscle use Cardiovascular: RRR, no murmur, no edema Vessels: no JVD or carotid bruit Chest: normal inspection of chest Abdomen: normal bowel sounds, soft, nontender, no hepatosplenomegaly Musculoskeletal: no cyanosis or clubbing, extremities motor strength 5/5 Skin: no rashes, warm and dry normal turgor Neurologic: PERRL, EOMI, accommodation nl, no face palsy, no dysarthria CN's II- XI intact bilaterally and moves all extremities Psychiatric: A+Ox3, euthymic affect Results & Data Results & Data Vital Signs (Past 12 Hours) Vital Signs Temp Pulse Pulse Pulse Resp BP Pulse Ox 03/17/23 13:08 80 18 151/90 H 96 03/17/23 13:00 36.6 C 85 16 159/78 H 92 03/17/23 12:35 76 16 150/70 H 96 03/17/23 12:25 36.4 C L 74 16 157/64 H 95 03/17/23 12:15 77 14 172/81 H 95 03/17/23 12:05 71 16 185/76 H 98 03/17/23 11:55 76 18 174/85 H 93 03/17/23 11:49 36.2 C L 78 18 188/99 H 95 03/17/23 08:32 36.8 C 63 18 150/81 H 91 03/17/23 07:46 03/17/23 07:00 55 L 03/17/23 03:19 36.6 C 62 18 135/71 92 O2 Del Method O2 Flow Rate 03/17/23 13:08 Nasal Cannula 3 03/17/23 13:00 Nasal Cannula 3 03/17/23 12:35 Nasal Cannula 3 03/17/23 12:25 Nasal Cannula 3 03/17/23 12:15 Nasal Cannula 3 03/17/23 12:05 Nasal Cannula 3 03/17/23 11:55 Nasal Cannula 3 03/17/23 11:49 Nasal Cannula 3 03/17/23 08:32 Room Air 03/17/23 07:46 Room Air 03/17/23 07:00 03/17/23 03:19 Room Air Laboratory Results Laboratory Results WBC 9.78 K/ul (4.8-10.8) 03/17/23 06:34 RBC 4.01 M/uL (4.20-5.40) L 03/17/23 06:34 Hgb 10.5 g/dl (12.0-16.0) L 03/17/23 06:34 Hct 36.3 % (37.0-47.0) L 03/17/23 06:34 MCV 90.5 fL (80.0-100.0) 03/17/23 06:34 MCH 26.2 pg (25.0-34.0) 03/17/23 06:34 MCHC 28.9 g/dL (32.0-36.0) L 03/17/23 06:34 RDW Std Deviation 44.4 fL (36.4-46.3) 03/17/23 06:34 RDW Coeff of Jaron 13.7 % (11.5-14.5) 03/17/23 06:34 Plt Count 290 K/uL (130-400) 03/17/23 06:34 MPV 9.7 fL (9.4-12.4) 03/17/23 06:34 Immature Gran % (Auto) 0.7 % 03/17/23 06:34 Neut % (Auto) 61.2 % 03/17/23 06:34 Lymph % (Auto) 24.3 % 03/17/23 06:34 [place] % (Auto) 6.9 % 03/17/23 06:34 Eos % (Auto) 6.4 % 03/17/23 06:34 Baso % (Auto) 0.5 % 03/17/23 06:34 Neut # (Auto) 5.98 K/uL (1.40-6.50) 03/17/23 06:34 Lymph # (Auto) 2.38 K/uL (1.20-3.40) 03/17/23 06:34 [place] # (Auto) 0.67 K/uL (0.11-0.59) H 03/17/23 06:34 Eos # (Auto) 0.63 K/uL (0.00-0.50) H 03/17/23 06:34 Baso # (Auto) 0.05 K/uL (0.00-0.20) 03/17/23 06:34 Immature Gran # (Auto) 0.07 K/uL (0.01-0.20) 03/17/23 06:34 Polychromasia 1+ 03/17/23 06:34 VBG pH 7.43 (7.36-7.41) H 03/16/23 18:36 VBG pCO2 77 mmHg (38-50) H 03/16/23 18:36 VBG pO2 37 mmHg 03/16/23 18:36 VBG HCO3 51 mmol/L 03/16/23 18:36 VBG O2 Saturation < 60.0 % 03/16/23 18:36 VBG Base Excess 22.0 mEq/L 03/16/23 18:36 Sodium 141 mmol/L (136-145) 03/17/23 06:34 Potassium 3.8 mmol/L (3.5-5.1) 03/17/23 06:34 Chloride 97 mmol/L (98-107) L 03/17/23 06:34 Carbon Dioxide 43 mmol/L (21-32) H* 03/17/23 06:34 Anion Gap 1 (3-11) L 03/17/23 06:34 BUN 12 mg/dl (6-23) 03/17/23 06:34 Creatinine 0.64 mg/dl (0.6-1.2) 03/17/23 06:34 Est Cr Clr Drug Dosing 99.3 ml/min 03/17/23 06:34 Est GFR ( Amer) 110.1 ml/min 03/17/23 06:34 Est GFR (Non-Af Amer) 95.0 ml/min 03/17/23 06:34 BUN/Creatinine Ratio 18.8 (10-20) 03/17/23 06:34 Glucose 105 mg/dl (70-99(Fasting)) H 03/17/23 06:34 Calcium 8.3 mg/dl (8.6-10.3) L 03/17/23 06:34 Magnesium 2.3 mg/dl (1.7-2.4) 03/17/23 06:34 Total Bilirubin 0.3 mg/dl (0.2-1.0) 03/16/23 15:45 AST 26 U/L (13-39) 03/16/23 15:45 ALT 14 U/L (7-52) 03/16/23 15:45 Alkaline Phosphatase 92 U/L (34-104) 03/16/23 15:45 Total Protein 7.2 gm/dl (6.0-8.3) 03/16/23 15:45 Albumin 3.6 gm/dl (3.4-5.0) 03/16/23 15:45 Globulin 3.6 gm/dl (2.5-4.0) 03/16/23 15:45 Albumin/Globulin Ratio 1.0 (0.9-2) 03/16/23 15:[address] 03/16/23 16:21 CT facial bones w con CLINICAL HISTORY: L facial swelling/infection TECHNIQUE: Multidetector row helical CT of the maxillofacial bones was performed with administration of intravenous contrast, and processed with bone and soft tissue algorithms. Coronal and sagittal reformations were obtained. Automated dose lowering techniques and/or adjustment according to patient size were utilized for this exam. Comparison: None available at the time of this dictation. FINDINGS: There is a rim-enhancing subcutaneous fluid collection measuring 12 mm in the left buccal tissues with surrounding soft tissue stranding. There are enlarged left cervical and submandibular lymph nodes measuring up to 8 mm in diameter. Nasal bones are normal. The mandible is intact. The temporomandibular joints are anatomically aligned. Pterygoid plates are intact. Zygomatic arches are intact. The globes are normal and symmetric, without proptosis, obvious disruption or lens dislocation. There is no orbital radiopaque foreign body. The orbital salmon are intact. The retrobulbar fat is without evidence of disruption. Extraocular muscles are normal and symmetric. Optic nerve sheath complexes are normal in course and caliber. Imaged portions of the paranasal sinuses and mastoid air cells are clear. IMPRESSION: Findings compatible with an abscess in the left buccal subcutaneous fat with reactive soft tissue stranding and lymphadenopathy. ACT 112: Negative or not required by law. Electronically signed by: Sreekanth Swanson M.D. 03/16/2023 6:17 PM
[2023-03-17] MEDS ORDERED: CYANOCOBALAMIN 1000 MCG/ML VIAL IM SCH (14:00)
[2023-03-18] MEDS: LEVOTHYROXINE SODIUM 150 MCG TABLET PO SCH (05:34)
[2023-03-18 06:44] LABS: Basophils # (auto) 0.03 K/uL (0.00-0.20); Basophils % (auto) 0.2 %; Hematocrit (blood only) 35.1 % (37.0-47.0); Hemoglobin 10.5 g/dl (12.0-16.0); Immature Granulocytes # (auto) 0.15 K/uL (0.01-0.20); Lymphocytes # (auto) 1.55 K/uL (1.20-3.40); Lymphocytes % (auto) 10.8 %; Mean Corpuscular Hemoglobin 26.6 pg (25.0-34.0); Mean Corpuscular Hgb Conc 29.9 g/dL (32.0-36.0); Mean Corpuscular Volume 89.1 fL (80.0-100.0); Mean Platelet Volume 10.2 fL (9.4-12.4); Monocytes # (auto) 0.75 K/uL (0.11-0.59); Monocytes % (auto) 5.2 %; Neutrophils # (auto) 11.82 K/uL (1.40-6.50); Neutrophils % (auto) 82.8 %; Platelet Count 345 K/uL (130-400); RDW Coefficient of Variation 13.5 % (11.5-14.5); RDW Standard Deviation 44.2 fL (36.4-46.3); Red Blood Count 3.94 M/uL (4.20-5.40)
[2023-03-18 07:24] LABS: BUN Creatinine Ratio 21.9 (10-20); Calcium 8.7 mg/dl (8.6-10.3); Creatinine Clr Calc Pharmacy 87.1 ml/min; Est GFR (African American) 101.6 ml/min; Est GFR (Non-African American) 87.7 ml/min; Potassium 4.8 mmol/L (3.5-5.1)
[2023-03-18] MEDS: METHOCARBAMOL 500 MG TABLET PO SCH (09:56)
[2023-03-18] MEDS: MULTIVITAMIN CHEWABLE TAB PO SCH (09:56)
[2023-03-18] MEDS: DONEPEZIL HCL 10 MG TAB PO SCH (09:56)
[2023-03-18] MEDS: NYSTATIN CR 15 GM TUBE EXT SCH (09:57)
[2023-03-18] MEDS: DULoxetine HCL 60 MG CAP PO SCH (09:57)
[2023-03-18] MEDS: DAPTOmycin 300 MG in SYRINGE 0 ML IV SCH (09:57)
[2023-03-18] MEDS: FUROSEMIDE 20 MG TAB PO SCH (09:57)
[2023-03-18] MEDS: FOLIC ACID 1 MG TAB PO SCH (09:58)
[2023-03-18] MEDS: BUPRENORPHINE/NALOXONE 8/2 MG TAB SL SCH (09:59)
--- NOTE | 2023-03-18 10:19 | Oral/Maxillofacial Progress Nt ---
Date of Service March 18, 2023 Assessment & Plan Admission and Anticipated Discharge Date Admission Date: March 16, 2023 Subjective Post Op infection evaluation The infected area has responded very well. Swelling is now much softer and drainage is less Minimal drainage is noted. Drain will be removed on SaturdayMar 22 in my office --appointment given . Cultures were reviewed. Infection has responded very well to the antibiotics and the I and D. I requested that the patient continue with massage, heat and wound care. At this time the area is well healed and responded well to treatment can be discharged on oral antibiotics suggest Keflex Oral Antibiotics Keflex 500 1 q 8 hrs =ordered . Results & Data Vital Signs (Past 12 Hours) Vital Signs Temp Pulse Pulse Resp BP Pulse Ox O2 Del Method 03/18/23 08:44 36.8 C 86 18 121/73 91 Nasal Cannula 03/18/23 07:50 Nasal Cannula 03/18/23 07:29 74 03/18/23 03:03 36.7 C 84 18 128/74 94 Nasal Cannula 03/17/23 23:36 72 03/17/23 22:55 36.7 C 77 18 136/74 96 Nasal Cannula O2 Flow Rate 03/18/23 08:44 3 03/18/23 07:50 3 03/18/23 07:29 03/18/23 03:03 3 03/17/23 23:36 03/17/23 22:55 3 PG Care Time/CCT Total # of Minutes Spent Total Time Spent with Patient: Total time spent is greater than 50% in coordination of care (as documented) at patient's floor/unit and/or counseling patient: Coding Level of Care Code 32479 SUB INP/OBS CARE 1/25MIN Diagnoses
[2023-03-18] MEDS: HYDROmorphone INJ 0.5 MG/0.5 ML SYR IV PRN (10:20)
--- NOTE | 2023-03-18 12:04 | Discharge Summary ---
Date of Service March 18, 2023 Admission HPI Per Admitting Provider 62yo F with a PMH of hypersomnia with sleep apnea newly on CPAP, chronic hypoxic respiratory failure currently on 1L NC O2 as per patient, moderate dementia with mood disturbance, morbid obesity with hypoventilation, history of medication noncompliance, hypothyroidism, dyslipidemia, post gastric surgery syndrome, psoriatic arthritis, h/o juvenile arthritis with chronic pain syndrome, myoclonic jerking, sensorineural hearing loss bilateral, depression, history of kidney stones, was recently in the hospital for acute acute on chronic respiratory with hypoxia hypercarbia, obstructive apnea treated with BiPAP and acetazolamide discharged home comes back with left facial cellulitis and abscess. Patient states she scratched her face and she noticed some swelling last Saturday. Saw PCP for follow-up appointment posthospital discharge and was prescribed doxycycline for facial infection and a dose of Rocephin was given but infection was worsening and today it extended to the neck region and having lot of pain and was advised to come to the ER. Denies any fever. Denies any shortness of breath. No difficulty swallowing. She had some chest pain earlier but no chest pain now. Currently no cough. Has some headaches. No blurred visions. No earache or runny nose. No nausea. No abdominal pain. Normal bowel and bladder movements. Past medical history as mentioned above Past surgical history left breast biopsy, colonoscopy, endometrial cryoablation, hysteroscopy, lap sleeve gastrectomy, lumbar spinal shots, laparoscopic cholecystectomy, repair of the right Achilles tendon, Social history . No smoking. No alcohol use. No drug use. Family history mother has Alzheimer's, breast cancer hypertension obesity. Father has arthritis, asthma, diabetes, ear problems, depression, obesity. Aunt has breast cancer. Admission Exam Per Admitting Provider General- Not in distress Head- Swelling of the lft cheek wit erythematous changes and mild swelling of left face extending to neck region. Eyes- PERRL, ENT- oropharynx clear Neck- supple, no JVD,. Lungs- clear to auscultation , no wheezing or crackles. Heart- regular rate and rhythm; no murmur, no gallop. Abdomen- normal bowel sounds, soft, erythematous rash in abdominal folds extending to pelvic region Extremities- lower extremity edema present. no erythema seen . Neuro- alert, oriented x 3; PERRL, EOMI; no facial palsy; no dysarthria;obeys commands, moves extremities Principal Diagnosis Left cheek cellulitis/abscess status post I&D on March 17, 2023. Discharge Exam Constitutional: Alert orient x3; morbidly obese. Head: Swelling improved on the left cheek. Minimal drain is present. Drain in place Respiratory: normal respiratory effort, lungs clear to auscultation, no wheeze, rales, rhonchi. Normal insp/exp effort, no accessory muscle use Cardiovascular: RRR, no murmur, no edema Vessels: no JVD or carotid bruit Chest: normal inspection of chest Abdomen: normal bowel sounds, soft, nontender, no hepatosplenomegaly Musculoskeletal: no cyanosis or clubbing, extremities motor strength 5/5 Skin: no rashes, warm and dry normal turgor Neurologic: PERRL, EOMI, accommodation nl, no face palsy, no dysarthria CN's II- XI intact bilaterally and moves all extremities Psychiatric: A+Ox3, euthymic affect Discharge Data Allergies Allergy/AdvReac Type Severity Reaction Status Date / Time Penicillins Allergy Mild Verified 08/19/09 03:46 monosodium glutamate Allergy Verified 03/06/23 12:53 Consultations 03/16/23 18:47 Consult Oromaxillofacial Surgery Routine 03/16/23 18:48 ED Decision to Admit Stat Procedures Performed Operation Date: 03/17/23 10:30 Actual Procedures p Incision and Drainage General - Yan Dos Santos DMD Ordered Studies 03/16/23 16:21 CT facial bones w con Stat Hospital Course (1) Cellulitis and abscess of face: 62yo F with a PMH of hypersomnia with sleep apnea newly on CPAP, chronic hypoxic respiratory failure currently on 1L NC O2 as per patient, moderate dementia with mood disturbance, morbid obesity with hypoventilation, history of medication noncompliance, hypothyroidism, dyslipidemia, post gastric surgery syndrome, psoriatic arthritis, h/o juvenile arthritis with chronic pain syndrome, myoclonic jerking, sensorineural hearing loss bilateral, depression, history of kidney stones, was recently in the hospital for acute acute on chronic respiratory with hypoxia hypercarbia, obstructive apnea treated with BiPAP and acetazolamide discharged home comes back with left facial cellulitis and abscess Patient reports that she had a scab which she scratched which led to development of cellulitis and subsequent abscess. Failed outpatient treatment with doxycycline and Rocephin CT face showed rim-enhancing subcutaneous fluid collection measuring 12 mm left buccal tissue. Status post I&D by oral surgery on 03/17/2023. Patient was treated with IV daptomycin during the hospitalization. She was transition to Keflex as per recommended by oral surgery. Patient to see oral surgery 4 days after discharge. All other medication were continued as before. Please note the above document was generated using voice recognition software. It may contain grammatical, syntax or spelling errors. Any formal questions or concerns about the content, text or information contained within the body of this dictation should be directly addressed to the provider for clarification Total Time Total Time Spent Total Time Spent (In Minutes): 40 Total Time Includes: Examination of the Patient, Discharge Planning, Medication Reconciliation, Communication With Other Providers and Other Discharge Plan Discharge Items Patient Disposition: Home - Self-Care Reason For Visit: FACIAL INFECTION Discharge Diagnosis: s/p facial infection left cheek Condition on Discharge: Good Activity: Resume your previous activity Lifting: Gradually increase as tolerated Bathing: No limitations Exercise/Sports: Gradually increase as tolerated Weightbearing: Full weightbearing Non-emergency contact: Surgeon Call non-emergency contact if: your pain is not controlled, your temperature is above 101.5, your wound has increased redness, your wound has increased drainage and your wound pain has increased Follow-up/Referrals: Jessica Rhodes MD [Primary Care Provider] - Yan Dos Santos DMD [Physician] - Diet: Regular Addtl Attending Provider Instructions: You were prescribed Keflex by your primary care doctor. Please continue to take that medication. Follow-up with Dr. Dos Santos on March 22 at 9 AM. ADDITIONAL ACTIVITY RECOMMENDATIONS: SPECIAL CARE INSTRUCTIONS: *It is not uncommon that between day 2-4 that your swelling will be at its worst this is very normal, do not be alarmed. * apply heat (hot water bottle or heating pad) as often as possible as we discussed. * change the dressing as needed * Some swelling is common. It should gradually decrease within 4-5 days. * A certain amount of bleeding is to be expected. It is often possible to control mild oozing by placing folded gauze over the area If you are unable to control excessive bleeding, call Dr Dos Santos at [phone] * You may experience some discomfort for a few days. If pain or swelling increases, Call Dr Dos Santos * Return to the office for a follow up check up on: SaturdayMarch 22 at 9 am * office address--[address]. phone # [phone] Pending Studies at Discharge: No Stand-Alone Forms: [facility], Smoking Cessation Medications and DC Order Prescriptions: Continued cephalexin 500 mg capsule 500 mg PO Q8H 10 Days Qty: 30 0RF fluconazole 150 mg tablet 150 mg PO DAILY PRN (Reason: other) nystatin 100,000 unit/gram Powder 1 applic TOPICAL BID Cerovite Jr 18 mg iron- 10 mcg tablet,chewable 1 tab PO DAILY amitriptyline 25 mg tablet 25 mg PO HS Rx Instructions: take along with 10mg amitriptyline 10 mg tablet 10 mg PO HS Rx Instructions: to take additionally with 25mg HS cyanocobalamin (vitamin B-12) 1,000 mcg/mL solution 1,000 mcg IM MONTHLY buprenorphine-naloxone 8-2 mg film 1 film sublingual BID methocarbamol 500 mg tablet 500 mg PO BID donepezil 10 mg Tablet 10 mg PO DAILY levothyroxine 150 mcg tablet 150 mcg PO DAILY folic acid 1 mg Tablet 1 mg PO DAILY furosemide [Lasix] 20 mg Tablet 20 mg PO DAILY loratadine 10 mg Tablet 10 mg PO DAILY PRN (Reason: Allergy Symptoms) duloxetine 60 mg capsule,delayed release(DR/EC) 60 mg PO DAILY Discontinued doxycycline hyclate 100 mg capsule 100 mg PO BID Discharge Orders: Discharge Order (Routine); Ordered 03/18/23 Ordered By: Gibson Lafleur/Other Patient Handouts: ED Cellulitis, Facial Admission Data Admit Date/Time: 03/16/23 20:55 Attending Provider: Gibson Salamanca Admit Provider: Jimmy Rey Primary Care Provider: Jessica Rhodes Other Providers: Terrell Gallegos ; Yan Dos Santos ; Jimmy Rey
--- NOTE | 2023-03-23 16:58 | Operative Report ---
PG Post Operative Report Pre & Post Diagnosis Operation Date: 03/17/23 10:30 Pre-Op Diagnosis: FACIAL INFECTION Post-Op Diagnosis: FACIAL INFECTION I identified the patient and participated in the time-out.: Yes Procedure Operation Date: 03/17/23 10:30 Actual Procedures p Facial Incision and Drainage - Yan Dos Santos DMD Surgeon Yan Dos Santos DMD Field Education Director none Estimated Blood Loss 5 Findings Consistent with Post-Op Diagnosis acute left facial abcess Specimens I&D Drains long 1/4 Jose Anesthesia Type General Complications none Indications acute facial infection possible infected dermoid cyst Description of Procedure Actual Procedures p Incision and Drainage left cheek Abscess; (Not Applicable) - Yan Dos Santos DMD ICD10 L03.211 CELLULITICS OF THE FACE (left cheek) CPT 84638 I&D facial abscess Once cleared for surgery, general anesthesia was achieved, the eyes were protec maureen by the anesthesia dept criteria. A time out was take for patient ID, antibiotics, equipment and position verification once all agreed the procedure began. Local anesthesia using Marcaine with a vasoconstrictor ( 1.8 ml per site) given into soft tissue oral and intraoral A throat pack was placed after the oral cavity was irrigated with saline. Once a surgical level of anesthesia was obtained and the local anesthesia was given time for the blocks the surgery was started. I turned my attention to the infection which was located in the left cheek area. as per patient this started as a small pimple and got worse. The inside of the mouth left side was also swollen. Incision and Drainage ICD10 L03.211 CELLULITICS OF THE FACE (left cheek) CPT 52293 I&D facial abscess The sire was prepped in the standard manner. Using a 15 blade an incision was made in the most fluctuant area of the infection in a natural skin fold. Once the incision was made a lot of pus extruded from the site. This drainage was cultured for anaerobic and aerobic bacteria. A curved hemostat was carefully placed into the infected space along cheek muscles to breakup any loculations of pus and establish drainage. Some further drainage was now allowed to escape. I palpated the cheek and oral mucosa and no further drainage was expressed. The area was irrigated with at least 100 ml of NS solution. At this time a placed a long 1/4 inch Jose drain and sutured it in place with a 5-0 nylon suture. I cover dressing was placed. I inspected the sites to insure all bleeding was controlled. I removed the throat pack and suctioned the throat an OG tube was placed. All instrument and sponge count was correct. The patient was allowed to awake from the anesthesia. Once full awake the anesthesia tube was removed and the patient was taken to the recovery room with all vital sign stable. The patient tolerated the surgery very well. I will follow the patient in my office, Rx and instructions will be given upon discharge. Drain removal is set for Saturday. I attest to the content of the Intraoperative Record and any orders documented therein. Any exceptions are noted below.
== END 2023-03-18 13:08 | disposition home or self-care (01) | DRG 603 ==
LOC: ED 15:17 → SUATTDRO 20:55 → 2N 20:55